=== PATIENT | male | born 1970 | race Hispanic/Latino ===

== ENCOUNTER 2019-12-11 11:34 | Emergency (ER) | payer OTHER ==
[~2019-12-11] VITALS: Ht 170.2 cm; Wt 77.1 kg
--- OUTSIDE RECORDS SUMMARY | 2019-12-11 11:37 | XMS REPORT | Summary of Care ---
Author Author [facility] Organization [facility] Address Unknown Phone Unavailable Encounter HQ Machelle(FIN) [id number] Date(s): 06/19/17 - 06/19/17 [facility] [address], [address] [place] [address]- [phone] Discharge Disposition: Home or Self Care Attending Physician: Mila Houston MD Vital Signs Most recent to 1 oldest [Reference Range]: Height 170.18 cm (06/19/17 8:30 AM) Temperature Oral 98.7 DegF [96.4-99.1 DegF] (06/19/17 8:30 AM) Blood Pressure 123/61 mmHg [90-140/60-90 mmHg] (06/19/17 8:30 AM) Respiratory Rate 14 BRMIN [14-20 BRMIN] (06/19/17 8:30 AM) Peripheral Pulse 61 bpm Rate [60-100 bpm] (06/19/17 8:30 AM) Weight 77.955 kg (06/19/17 8:30 AM) Body Mass Index 26.92 m2 (06/19/17 8:30 AM) Problem List Condition Effective Dates Status Health Status Informan t Abnormal EKG Active finding(Confirmed)1 Acid Active reflux(Confirmed) Anxiety(Confirmed) Active Anxiety Active disorder(Confirmed)2 Back pain(Confirmed) Active Benign essential Active HTN(Confirmed) Chest Active pain(Confirmed) Chronic diastolic 01/12/15 Active heart failure(Confirmed)3 B12 Active deficiency(Confirmed ) Low serum vitamin Active D(Confirmed) 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 See's Dr[address] Leslie Grant 2Data migrated from [employer] on 12/25/14. 3Data migrated from [employer] on 02/02/15. 4Data migrated from [employer] on 12/25/14. 5Data migrated from [employer] on 12/25/14. 6Data migrated from [employer] on 02/02/15. 7Data migrated from [employer] on 12/25/14. 8Data migrated from [employer] on 12/25/14. 9Data migrated from [employer] on 12/25/14. 10Data migrated from [employer] on 12/25/14. 11Data migrated from [employer] on 12/25/14. 12Data migrated from [employer] on 12/25/14. 13Data migrated from [employer] on 12/25/14. Allergies, Adverse Reactions, Alerts Substance Reaction Severity Status penicillins1, 2 Active 1Data migrated from [employer] on 02/25/15. Originally documented as PENICILLIN. rash on body 2Data migrated from [employer] on 02/24/15. Originally documented as PENICILLIN. Medications ergocalciferol 50,000 intl units oral capsule 50,000 IntlUnit = 1 cap, PO, Q-M and W, # 35 cap, 0 Refill(s), Pharmacy: [id number] Start Date: 06/19/17 Stop Date: 10/17/17 Status: Ordered furosemide 40 mg oral tablet 40 mg = 1 tab, PO, Daily, # 90 tab, 1 Refill(s), Pharmacy: [id number] Start Date: 06/19/17 Stop Date: 12/16/17 Status: Ordered losartan 100 mg oral tablet 100 mg = 1 tab, PO, Daily, X 90 day, # 90 tab, 1 Refill(s), Pharmacy: [id number] Start Date: 06/19/17 Stop Date: 12/16/17 Status: Ordered simvastatin 5 mg oral tablet 5 mg = 1 tab, PO, Bedtime, X 90 day, # 90 tab, 1 Refill(s), Pharmacy: [id number] Start Date: 06/19/17 Stop Date: 12/16/17 Status: Ordered Results No data available for this section Immunizations Given and Recorded Vaccine Date Status Refusal Reason influenza virus vaccine, inactivated 03/31/17 R ecorded influenza virus vaccine, inactivated 05/05/15 G iven influenza virus vaccine, inactivated1 04/24/13 Given pneumococcal 23-valent vaccine 05/05/15 Given diphtheria/pertussis, acel/tetanus adult 05/04/15 Given Hx influenza vaccine-unspecified2 04/24/13 Give n 1Result Comment: fluzone (>3 yrs.) [[id number]]. Migrated from OBS ; Data migrated from [employer] on 08/30/2015. 2Result Comment: done. Migrated from OBS ; Data migrated from [employer] on 08/30/2015. Procedures Procedure Date Related Diagnosis Body Site Procedure on elbow joint1 04/2015 Operation 04/13/11 Tricuspid valve operation 05/13/10 Injection into joint Open heart surgery 1Incision and drainage Social History Social History Type Response Alcohol Current, Type Beer. Freque ncy: 1-2 times per month. Smoking Status Never smoker; Type: Cigars; Exposure to Tobacco Smoke None; Cigarette Smoking Last 365 Days No; Reg Smoking C essation Counseling No Assessment and Plan No data available for this section
--- OUTSIDE RECORDS SUMMARY | 2019-12-11 11:37 | XMS REPORT | Summary of Care ---
Author Author [facility] Organization [facility] Address Unknown Phone Unavailable Encounter HQ Machelle(FIN) [id number] Date(s): 06/11/17 - 06/11/17 [facility] [address], [address] [place] [address]- [phone] Discharge Disposition: Home or Self Care Attending Physician: Mila Houston MD Vital Signs Most recent to 1 oldest [Reference Range]: Height 170.18 cm (06/11/17 9:59 AM) Temperature Oral 99.3 DegF [96.4-99.1 DegF] *HI* (06/11/17 9:59 AM) Blood Pressure 124/67 mmHg [90-140/60-90 mmHg] (06/11/17 9:59 AM) Respiratory Rate 14 BRMIN [14-20 BRMIN] (06/11/17 9:59 AM) Peripheral Pulse 60 bpm Rate [60-100 bpm] (06/11/17 9:59 AM) Weight 76.364 kg (06/11/17 9:59 AM) Body Mass Index 26.37 m2 (06/11/17 9:59 AM) Problem List Condition Effective Dates Status Health Status Informan t Abnormal EKG Active finding(Confirmed)1 Acid Active reflux(Confirmed) Anxiety(Confirmed) Active Anxiety Active disorder(Confirmed)2 Back pain(Confirmed) Active Benign essential Active HTN(Confirmed) Chest Active pain(Confirmed) Chronic diastolic 01/12/15 Active heart failure(Confirmed)3 Low serum vitamin Active D(Confirmed) 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 Originally documented as PENICILLIN. Medications citalopram 40 mg oral tablet 40 mg = 1 tab, PO, Daily, # 90 tab, 1 Refill(s), Pharmacy: [id number] Start Date: 06/11/17 Stop Date: 12/08/17 Status: Ordered furosemide 40 mg oral tablet 40 mg = 1 tab, PO, Daily, # 90 tab, 1 Refill(s), Pharmacy: [id number] Start Date: 06/11/17 Stop Date: 12/08/17 Status: Ordered losartan 100 mg oral tablet 100 mg = 1 tab, PO, Daily, X 90 day, # 90 tab, 1 Refill(s), [facility] Start Date: 06/11/17 Stop Date: 12/08/17 Status: Ordered minoxidil 2.5 mg oral tablet 2.5 mg = 1 tab, PO, BID, # 180 tab, 1 Refill(s), Pharmacy: [id number] Start Date: 06/11/17 Stop Date: 12/08/17 Status: Ordered Nitrostat 0.4 mg sublingual tablet 0.4 mg = 1 tab, SL, Q5Min, PRN Chest Pain, # 100 tab, 0 Refill(s), Pharmacy: [facility] Start Date: 06/11/17 Stop Date: 07/11/17 Status: Ordered simvastatin 5 mg oral tablet 5 mg = 1 tab, PO, Bedtime, X 90 day, # 90 tab, 1 Refill(s), [facility] Start Date: 06/11/17 Stop Date: 12/08/17 Status: Ordered Results No data available for this section Immunizations Given and Recorded Vaccine Date Status Refusal Reason influenza virus vaccine, inactivated 03/31/17 R ecorded influenza virus vaccine, inactivated 05/05/15 G iven influenza virus vaccine, inactivated1 04/24/13 Given pneumococcal 23-valent vaccine 05/05/15 Given diphtheria/pertussis, acel/tetanus adult 05/04/15 Given Hx influenza vaccine-unspecified2 04/24/13 Give n 1Result Comment: fluzone (>3 yrs.) [[id number]]. Migrated from OBS ; Data migrated from [employer] on 08/30/2015. 2Result Comment: done. Migrated from OBS ; Data migrated from [employer] on 08/30/2015. Procedures Procedure Date Related Diagnosis [...]
--- OUTSIDE RECORDS SUMMARY | 2019-12-11 11:37 | XMS REPORT | Summary of Care ---
Author Author [facility] Organization [facility] Address Unknown Phone Unavailable Encounter HQ Xavier_bebo(FIN) [id number] Date(s): 09/15/18 - 09/16/18 [facility] [address], [address] [place] [address]- [phone] Vital Signs No data available for this section Problem List Condition Effective Dates Status Health Status Informan t Abnormal EKG Active finding(Confirmed)1 Acid Active reflux(Confirmed) Anemia(Confirmed) Active Anxiety(Confirmed) Active Canker Active sore(Confirmed) Back pain(Confirmed) Active Benign essential Active HTN(Confirmed) Chronic diastolic 01/12/15 Active heart failure(Confirmed)2 B12 Active deficiency(Confirmed ) Low serum vitamin Active D(Confirmed) DM type 2 with Resolved diabetic peripheral neuropathy(Confirmed ) Tricuspid valve Active replaced(Confirmed) Heart disease3 09/21/13 Active Status post aortic Active coarctation repair(Confirmed) Hyperkalemia4 Active Impotence5 Active Injury of index Active finger(Confirmed) Insomnia6 Active Knee pain7 09/21/13 Active Hyperlipidemia, Active mixed(Confirmed) Annual physical Active exam(Confirmed) Prediabetes(Confirme Active d) Diabetes mellitus Active screening(Confirmed) Shoulder joint pain8 Active Spinal stenosis9 Active 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 See's [address] Leslie Grant 2Data migrated from [employer] on 02/02/15. 3Data migrated from [employer] on 12/25/14. 4Data migrated from [employer] on 12/25/14. 5Data migrated from [employer] on 12/25/14. 6Data migrated from [employer] on 12/25/14. 7Data migrated from [employer] on 12/25/14. 8Data migrated from [employer] on 12/25/14. 9Data migrated from [employer] on 12/25/14. Allergies, Adverse Reactions, Alerts Substance Reaction Severity Status penicillins1, 2 Active 1Data migrated from [employer] on 02/25/15. Originally documented as PENICILLIN. rash on body 2Data migrated from [employer] on 02/24/15. Originally documented as PENICILLIN. Medications amLODIPine-valsartan 10 mg-320 mg oral tablet 1 tab, PO, Daily, # 90 tab, 1 Refill(s), Pharmacy: [id number] Start Date: 09/15/18 Stop Date: 03/14/19 Status: Ordered Results No data available for this section Immunizations Given and Recorded Vaccine Date Status Refusal Reason influenza virus vaccine, inactivated1 06/12/18 Given influenza virus vaccine, inactivated 03/31/17 R ecorded influenza virus vaccine, inactivated 05/05/15 G iven influenza virus vaccine, inactivated2 04/24/13 Given pneumococcal 23-valent vaccine 05/05/15 Given diphtheria/pertussis, acel/tetanus adult 05/04/15 Given Hx influenza vaccine-unspecified3 04/24/13 Give n 1Result Comment: Patient tolerated well 2Result Comment: fluzone (>3 yrs.) [[id number]]. Migrated from OBS ; Data migrated from [employer] on 08/30/2015. 3Result Comment: done. Migrated from OBS ; Data migrated from [employer] on 08/30/2015. Procedures Procedure Date Related Diagnosis Body Site Status Procedure on elbow joint1 04/2015 Completed Operation 04/13/11 Completed Tricuspid valve operation 05/13/10 Completed Injection into joint Completed Open heart surgery Completed 1Incision and drainage Social History Social History Type Response Alcohol Current, Type Beer. Freque ncy: 1-2 times per month. Smoking Status Never smoker; Type: Cigars; Exposure to Tobacco Smoke None; Cigarette Smoking Last 365 Days No; Reg Smoking C essation Counseling No entered on: 09/17/18 Assessment and Plan No data available for this section
--- OUTSIDE RECORDS SUMMARY | 2019-12-11 11:37 | XMS REPORT | Summary of Care ---
Author Author [facility] Organization [facility] Address Unknown Phone Unavailable Encounter HQ Annier_bebo(FIN) [id number] Date(s): 06/18/17 - 06/18/17 [facility] [address], [address] [place] [address]- [phone] Attending Physician: Mila Houston MD Vital Signs No data available for this [...] 09/21/13 Resolved Hypertensive Active disorder(Confirmed)8 Impotence9 Active [id number] Active Knee pain11 09/21/13 Active Hyperlipidemia, Active mixed(Confirmed) Annual physical Active exam(Confirmed) Thyroid disorder Active screen(Confirmed) Shoulder joint Active pain12 Spinal kmbvauxc11 Active 1Patient has history of Trisuspid valve [...] on 02/24/15. Originally documented as PENICILLIN. Medications No data available for this section Results No data available for this section Immunizations Given and Recorded Vaccine Date Status Refusal Reason influenza virus vaccine, inactivated 03/31/17 R ecorded influenza virus vaccine, inactivated 05/05/15 G iven influenza virus vaccine, inactivated1 04/24/13 Given pneumococcal 23-valent vaccine 05/05/15 Given diphtheria/pertussis, acel/tetanus adult 05/04/15 Given Hx influenza vaccine-unspecified2 04/24/13 Give n 1Result Comment: fluzone (>3 yrs.) [[id number]]. Migrated from OBS ; Data migrated from [employer] on 08/30/2015. 2Result Comment: done. Migrated from OBS ; Data migrated from [employer] on 08/30/2015. Procedures Procedure Date Related Diagnosis [...]
--- OUTSIDE RECORDS SUMMARY | 2019-12-11 11:37 | XMS REPORT | Continuity of Care Document ---
Author Author Nelida [employer] Organization [employer] Address Unknown Phone Unavailable Care Team Providers Care [employer] Name Role Phone [employer] Unavailable Un available Problems Problem Status Onset Date Classification Date Reported Comments Source ARM PAIN Active 05/04/2015 [facility] LEFT ELBOW CELLULITIS Active 05/04/2015 [facility] Chronic diastolic heart failure (disorder) Active 01/12/2015 Problem 11/20/2019 Data migrated from [employer] on 02/02/15. Medical [facility] Discharge Diagnosis: Effusion of right knee 01/30/2014 02/01/2014 [facility] LEG PAIN Active 01/30/2014 [facility] UNK Active 0 01/19/2014 [facility] Heart disease (disorder) Active 09/21/2013 Problem 11/20/2019 Data migrated from [facility] on 12/25. [facility] Hyperlipidemia (disorder) Reso lved 09/21/2013 Problem 07/08/2017 Data migrated from [facility] on . Data migrated from [facility] on 12/25/14. [facility] Knee pain (finding) Active 09/21/2013 Problem 11/20/2019 Data migrated from [facility] on 12/25. [facility] NOSE BLEED Active 12/03/2011 [facility] Abnormal ECG (finding) Active Problem 11/20/2019 Patient has history of Trisuspid valve r eplacement in 2009. See's Dr[address] Leslie Grant [facility] [place] Gastroesophageal reflux disease (disorder) Active Problem 11/20/2019 [facility] [place] Anxiety (finding) Active Problem 11/20/2019 [facility] [place] Anxiety disorder (disorder) Ac tive Problem 05/2017 Data migrated from [facility] on 12/25. Medical [facility] Backache (finding) Active Problem 11/20/2019 [facility] [place] Benign essential hypertension (disorder) Active Problem 11/20/2019 [facility] Chest pain (finding) Active Problem 11/17/2017 [facility] Cobalamin deficiency (disorder) Active Problem [facility] Group Decreased vitamin D (finding) Active Problem [facility] Diabetic peripheral neuropathy associate d with type II diabetes mellitus (disorder) Resolved Problem 11/20/2019 [facility] Hyperkalemia (disorder) Active Problem 11/20/2019 Data migrated from [employer] on 12/25/14. Medical Group,[facility] Hypertensive disorder, systemic arterial (disorder) Active Problem 11/17/2017 Data migrated from [employer] on 12/25/14. Medical Group,[facility] [place] Impotence (disorder) Active Problem 11/20/2019 Data migrated from [employer] on 12/25/14. [facility] ([facility]order) Active Problem 11/20/2019 Data migrated from [employer] on 12/25/14. Medical Group,[facility] Mixed hyperlipidemia (disorder) Active Problem Medical Group Patient encounter status (finding) Active Problem Medical Group Screening status (finding) Act keara Problem Medical Group Shoulder joint pain (finding) Active Problem Data migrated from [employer] on 12/25. [facility] Spinal stenosis (disorder) Act keara Problem Data migrated from [employer] on 12/25. Medical Group,[facility] Anemia (disorder) Active Problem 11/20/2019 [facility] Bleeding from nose (finding) A ctive Problem Medical Group Cramp in lower limb (finding) Active Problem [facility] Group Prediabetes (finding) Active Problem 11/20/2019 [facility] Sore throat symptom (finding) Active Problem 05/2017 [facility] Viral upper respiratory tract infection (disorder) Active Problem 07/08/2017 [facility] Aphthous ulcer of mouth (disorder) Active Problem Medical Group History of - heart valve recipient (cont ext-dependent category) Active Prob lara 11/20/2019 [facility] History of repair of coarctation of aorta (situation) Active Problem 11/20/2019 Medical [facility] Injury of finger (disorder) Ac tive Problem Medical [facility] Moderate major depression (disorder) Active Problem Medical Group SHULDER PAIN Active [facility] RT KNEE Active [facility] [place] CELLULITIS, UNSPECIFIED Active [facility] Medications Medication Details Route Status Patient Instructions Ordering Provider Order Date Source olmesartan 40 mg oral tablet 4 0 mg = 1 tab, PO, Daily, # 90 tab, 1 Refill(s), Pharmacy: [facility] Active 11/18/2019 [facility] valsartan 320 mg oral tablet 3 20 mg = 1 tab, PO, Daily, # 90 tab, 1 Refill(s), Pharmacy: [facility] Active 07/20/2019 [facility] simvastatin 5 mg oral tablet 1 tab, PO, Bedtime, # 90 tab, 1 Refill(s), Pharmacy: [facility] Active 07/20/2019 [facility] carvedilol 12.5 mg oral tablet = 1 tab, PO, BID, # 180 tab, 1 Refill(s), Pharmacy: [id number] Active 07/20/2019 [facility] amLODIPine 10 mg oral tablet 1 0 mg = 1 tab, PO, Daily, # 90 tab, 1 Refill(s), Pharmacy: [facility] Active 07/20/2019 [facility] citalopram 20 mg oral tablet 2 0 mg = 1 tab, PO, Daily, # 90 tab, 1 Refill(s), Pharmacy: [facility] Active 07/20/2019 [facility] amLODIPine 10 mg oral tablet 1 0 mg = 1 tab, PO, Daily, # 30 tab, 0 Refill(s), Pharmacy: [facility]244 Active 07/13/2019 [facility] valsartan 320 mg oral tablet 3 20 mg = 1 tab, PO, Daily, # 30 tab, 0 Refill(s), Pharmacy: [facility] Active 07/13/2019 [facility] simvastatin 5 mg oral tablet 1 tab, PO, Bedtime, # 90 tab, 1 Refill(s), Pharmacy: [facility]244 Active 11/10/2018 [facility] Furosemide 20 MG Oral Tablet 2 0 mg = 1 tab, PO, Every Other Day, # 45 tab, 1 Refill(s), Pharmacy: [facility] Active 11/10/2018 [facility] citalopram 40 mg oral tablet S ee Instructions, TAKE ONE TABLET BY MOUTH ONCE DAILY FOR 90 DAYS, # 90 tab, 1 Refill(s), Pharmacy: [facility] Active 11/10/2018 [facility] Amlodipine 10 MG / valsartan 320 MG Oral Tablet 1 tab, PO, Daily, # 90 tab, 1 Refill(s), Pharmacy: [facility]244 Active 11/10/2018 [facility] carvedilol 12.5 mg oral tablet 12.5 mg = 1 tab, PO, BID, # 180 tab, 1 Refill(s), Pharmacy: [facility] Active 11/10/2018 [facility] Amlodipine 10 MG / valsartan 320 MG Oral Tablet 1 tab, PO, Daily, # 90 tab, 1 Refill(s), Pharmacy: [facility] Active 09/15/2018 [facility] Amlodipine 10 MG / Olmesartan medoxomil 40 MG Oral Tablet 1 tab, PO, Daily, # 90 tab, 1 Refill(s), Pharmacy: [facility] Active 09/11/2018 [facility] Salicylic Acid 170 MG/ML Topical Solution See Instructions, apply only on affected area daily for 30days, # 1 btl, 0 Refill(s), Pharmacy: [facility] No Longer Active 06/25/2018 [facility] Furosemide 20 MG Oral Tablet 2 0 mg = 1 tab, PO, Every Other Day, # 45 tab, 1 Refill(s), Pharmacy: [facility]244 No Longer Active 06/25/2018 [facility] Furosemide 20 MG Oral Tablet 2 0 mg = 1 tab, PO, Daily, # 90 tab, 1 Refill(s), Pharmacy: [facility]244 No Longer Active 06/12/2018 [facility] amLODIPine 5 mg oral tablet Se e Instructions, TAKE 1 TABLET BY MOUTH ONCE DAILY, # 90 tab, 1 Refill(s), Pharmacy: [facility]244 No Longer Active 05/26/2018 [facility] Furosemide 40 MG Oral Tablet S ee Instructions, # 90 tab, Refill(s) 1, TAKE ONE TABLET BY MOUTH ONCE DAILY, Pharmacy: [facility] Active 01/24/2018 Medical [facility] Hydrochlorothiazide 25 MG Oral Tablet 25 mg = 1 tab, PO, Daily, # 90 tab, 1 Refill(s), Pharmacy: [facility] No Longer Active 01/21/2018 [facility] simvastatin 5 mg oral tablet 5 mg = 1 tab, PO, Bedtime, # 90 tab, 1 Refill(s), Pharmacy: [facility] Active 01/09/2018 [facility] amLODIPine 5 mg oral tablet 5 mg = 1 tab, PO, Daily, # 90 tab, 1 Refill(s), Pharmacy: [facility] Active 01/08/2018 [facility] dimethicone 0.01 MG/MG Topical Ointment 1 appl, TOP, QID, # 15 gm, 0 Refill(s), Pharmacy: [facility] Active 12/03/2017 [facility] Fluocinonide 0.0005 MG/MG Topical Gel 1 appl, TOP, QID, X 7 day, # 15 gm, 0 Refill(s), Pharmacy: [facility] Active 12/03/2017 [facility] omeprazole 40 mg oral delayed release capsule 40 mg = 1 cap, PO, Daily, # 60 cap, 0 Refill(s), Pharmacy: [facility] Active 07/05/2017 [facility] clarithromycin 500 mg oral tablet 500 mg = 1 tab, PO, Q12H, X 7 day, # 14 tab, 0 Refill(s), Pharmacy: [facility] Active 07/05/2017 [facility] ibuprofen 800 mg oral tablet 8 00 mg = 1 tab, PO, Q8H, PRN Pain, Take with food, X 10 day, # 30 tab, 0 Refill(s), Pharmacy: [facility] Active 07/05/2017 [facility] losartan 100 mg oral tablet 10 0 mg = 1 tab, PO, Daily, X 90 day, # 90 tab, 1 Refill(s), Pharmacy: [facility] Active 06/19/2017 [facility] simvastatin 5 mg oral tablet 5 mg = 1 tab, PO, Bedtime, X 90 day, # 90 tab, 1 Refill(s), Pharmacy: [facility] Active 06/19/2017 [facility] Ergocalciferol 15704 UNT Oral Capsule 50,000 IntlUnit = 1 cap, PO, Q-M and W, # 35 cap, 0 Refill(s), Pharmacy: [facility] Active 06/19/2017 [facility] Furosemide 40 MG Oral Tablet 4 0 mg = 1 tab, PO, Daily, # 90 tab, 1 Refill(s), Pharmacy: [facility] Active 06/19/2017 [facility] simvastatin 5 mg oral tablet 5 mg = 1 tab, PO, Bedtime, X 90 day, # 90 tab, 1 Refill(s), Pharmacy: [place] [id number] Active 06/11/2017 [facility] minoxidil 2.5 mg oral tablet 2 .5 mg = 1 tab, PO, BID, # 180 tab, 1 Refill(s), Pharmacy: [place] [id number] Active 06/11/2017 [facility] losartan 100 mg oral tablet 10 0 mg = 1 tab, PO, Daily, X 90 day, # 90 tab, 1 Refill(s), Pharmacy: [place] [id number] Active 06/11/2017 [facility] Furosemide 40 MG Oral Tablet 4 0 mg = 1 tab, PO, Daily, # 90 tab, 1 Refill(s), Pharmacy: [facility] Active 06/11/2017 [facility] citalopram 40 mg oral tablet 4 0 mg = 1 tab, PO, Daily, # 90 tab, 1 Refill(s), Pharmacy: [facility] Active 06/11/2017 [facility] Nitroglycerin 0.4 MG Sublingual Tablet [Nitrostat] 0.4 mg = 1 tab, SL, Q5Min, PRN Chest Pain, # 100 tab, 0 Refill(s), Pharmacy: [facility] Active 06/11/2017 [facility] Acetaminophen 325 MG / Hydrocodone Isamar trate 5 MG Oral Tablet [Bridger 5/325] 1 tab, PO, Q6H, PRN Pain Score 4-6, # 30 tab, 0 Refill(s) Active 05/09/2015 [facility] Clonidine Notes: (Same As: Cat apres) Inactive 05/09/2015 [facility] Clindamycin 150 MG/ML Injectable Solution 600 mg, 50 mL, Route: IVPB, Drug form: INJ, Q8H, Dosing Weight 82.002, kg, Start date: 05/07/15 16:00:00, Duration: 1 doses or times, Stop date: 05/07/15 16:00:00 Inactive 05/07/2015 [facility] Ketorolac 4 days. No Longer Active 05/07/2015 [facility] Naloxone Notes: Same as Narcan Inactive 05/07/2015 [facility] Flumazenil Notes: (Same as: Ro mazicon) Inactive 05/07/2015 [facility] Ondansetron Notes: (Same as: Cady escalante) MEDICATION WASTE Product Size: 4 mg Product Wasted: ___ mg Inactive 05/07/2015 [facility] Oxycodone Notes: (Same as: Griselda icodone) Inactive 05/07/2015 [facility] Fentanyl Notes: (Same as: Subl imaze) Preservative free. Inactive 05/07/2015 [facility] Hydromorphone 0.5 mg, 0.5 mL, Route: IVP, Drug form: INJ, Q5Min, Dosing Weight 82.002, kg, PRN Pain Score 7-10, Start date: 05/07/15 9:06:00, Duration: 4 doses or times, Stop date: Limited # of times Inactive 05/07/2015 [facility] Meperidine Notes: (Same As: De merol) Inactive 05/07/2015 [facility] Hydralazine Notes: (Same as: A presoline) Push over 5 minutes Inactive 05/07/2015 [facility] Enoxaparin Notes: (Same as: Lo venox) No Longer Active 05/07/2015 [facility] pantoprazole Notes: Tablet jade uld not be chewed or crushed. (Same as: Protonix) N o Longer Active 05/07/2015 [facility] docusate sodium 100 mg oral capsule Notes: (Same as: Colace) (Do Not Crush) No Longer Active 05/07/2015 [facility] Acetaminophen 325 MG / Hydrocodone Isamar trate 10 MG Oral Tablet Notes: Do not exceed 4gm/day of acetamin ophen. (Same as: Bridger 325/10) No Longer Active 05/07/2015 [facility] Morphine Notes: (Same as:MORPh ine Sulfate) No Longer Active 05/07/2015 [facility] zolpidem Notes: (Same As: Ambi en) No Longer Active 05/07/2015 [facility] Promethazine Notes: Do not giv e IV push. (Same as: Phenergan) No Longer Active 05/07/2015 [facility] Dulcolax Laxative Notes: (Same As: Dulcolax, Correctol) (Do Not Crush) "Do Not Crush" No Longer Active 05/07/2015 [facility] Al hydroxide/Mg hydroxide/simethicone 20 0 mg-200 mg-20 mg/5 mL oral suspension Notes: (aluminum hydroxide-magnesium hyd -simethicone [phone]/5ml 30 ml ud RAMIRO) No Longer Active 05/07/2015 [facility] Diphenhydramine 12.5 mg, 0.5 t ab, Route: PO, Drug form: TAB, Q6H, Dosing Weight 82.002, kg, PRN Itching, Start date: 05/07/15 8:38:00, Duration: 30 day, Stop date: 06/06/15 8:37:00 No Longer Active 05/07/2015 [facility] Acetaminophen Notes: Do not ex ceed 4 gm/day. (Same as: Tylenol) No Longer Active 05/07/2015 [facility] Lactated Ringers IV 1,000 mL 1 ,000 mL, Rate: 75 ml/hr, Infuse over: 13.3 hr, Route: IV, Dosing Weight 82.002 kg, Total Volume: 1,000, Start date: 05/07/15 8:38:00, Duration: 30 day, Stop date: 06/06/15 8:37:00 No Longer Active 05/07/2015 [facility] Zanaflex Notes: (Same As: Nicola flex) No Longer Active 05/06/2015 [facility] Acetaminophen 300 MG / Codeine Phosphate 30 MG Oral Tablet [Tylenol with Codeine #3] Notes: Do not exceed 4gm/day of acetamin ophen. (Same as: Tylenol with Codeine # 3) No Longer Active 05/06/2015 [facility] Ibuprofen Notes: (Same as: Mot rin) "Do Not Crush" Take with food. No Longer Active 05/06/2015 [facility] Vancomycin 2001 mg: infuse ov er 2.5 hours No Longer Active 05/05/2015 [facility] Furosemide 40 MG Oral Tablet N otes: (Same as: Lasix) May cause GI upset. Give with food or milk. No Longer Active 05/05/2015 [facility] Losartan Notes: (Same as: Julio C dennis) No Longer Active 05/05/2015 [facility] Minoxidil Notes: (Same as:Mariam olivarez) No Longer Active 05/05/2015 [facility] Citalopram Notes: (Same As: Ce Dar) No Longer Active 05/05/2015 [facility] influenza virus vaccine, inactivated Notes: (Same as: Fluzone Quadrivalent) For 3 years of age and older (0.5 mL IM) Shake well before use Inactive 05/05/2015 [facility] pneumococcal capsular polysaccharide typ e 1 vaccine / pneumococcal capsular polysaccharide type 10A vaccine / pneumococcal capsular polysaccharide type 11A vaccine / pneumococcal capsular polysaccharide type 12F vaccine / pneumococcal capsular polysacchar Notes: (Same as: Pneumovax 23) Refrigerate Inactive 05/05/2015 [facility] Vancomycin Notes: TIME CRITICA L MEDICATION Inactive 05/05/2015 [facility] Losartan Notes: (Same as: Julio C dennis) No Longer Active 05/05/2015 [facility] Citalopram Notes: (Same As: Ce Dar) No Longer Active 05/05/2015 [facility] Minoxidil Notes: (Same as:Mariam olivarez) No Longer Active 05/05/2015 [facility] Aspirin Notes: Do not crush or chew. (Same As: Ecotrin) No Longer Active 05/05/2015 [facility] Alprazolam Notes: With food or milk (Same as: Xanax) No Longer Active 05/05/2015 [facility] Tylenol Notes: Max acetaminoph en = 4000mg/day (4 gm/day). (Same as: Tylenol) N o Longer Active 05/05/2015 [facility] Morphine Notes: (Same as:MORPh ine Sulfate) No Longer Active 05/05/2015 [facility] Saline Flush 0.9% Notes: (Same as: BD Posiflush) No Longer Active 05/04/2015 [facility] Tylenol Notes: Do not exceed 4 gm/day. (Same as: Tylenol) Inactive 05/04/2015 [facility] Vancomycin 1 gm, Route: IVPB, Drug form: INJ, Q24H, Dosing Weight 79.545, kg, Priority: STAT, Start date: 05/04/15 16:28:00, Duration: 30 day, Stop date: 06/02/15 16:28:00 Inactive 05/04/2015 [facility] Sodium Chloride 0.154 MEQ/ML Injectable Solution 1,000 mL, 1000 ml/hr, Infuse Over: 1 hr, Route: IV, 1,000, Drug form: INJ, ONCE, Priority: STAT, Dosing Weight 79.545 kg, Start date: 05/04/15 15:57:00, Duration: 1 doses or times, Stop date: 05/04/15 15:57:00 Inactive 05/04/2015 [facility] Vancomycin 1 gm, Route: IVPB, Drug form: INJ, ONCE, Dosing Weight 79.545, kg, Priority: STAT, Start date: 05/04/15 13:26:00, Stop date: 05/04/15 13:26:00 Inactive 05/04/2015 [facility] Flexeril 10 mg, Route: PO, ONC E, Dosing Weight 79.545, kg, Priority: STAT, Start date: 05/04/15 13:26:00, Stop date: 05/04/15 13:26:00 Inactive 05/04/2015 [facility] ropivacaine Notes: Final hubert ntration: Ropivacaine 0.2% 400 ml No Longer Active 01/22/2014 [facility] Zofran Notes: (Same as: Zofran) No Longer Active 01/22/2014 [facility] Acetaminophen 325 MG / Oxycodone Hydroch loride 5 MG Oral Tablet [Percocet 5/325] Notes: Do not exceed 4gm/day of acetamin ophen. (Same as: Percocet-5/325) No Longer Active 01/22/2014 [facility] Morphine Notes: (Same as:MORPh ine Sulfate) No Longer Active 01/22/2014 [facility] Naloxone Notes: Same as Narcan No Longer Active 01/22/2014 [facility] Promethazine Notes: Do not giv e IV push. (Same as: Phenergan) No Longer Active 01/22/2014 [facility] Ondansetron Notes: (Same as: Z ofran) No Longer Active 01/22/2014 [facility] Fentanyl Notes: (Same as: Subl imaze) Preservative free. No Longer Active 01/22/2014 [facility] Morphine Notes: (Same as:MORPh ine Sulfate) No Longer Active 01/22/2014 [facility] Oxycodone Notes: (Same as: Oxy IR) No Longer Active 01/22/2014 [facility] Hydromorphone 0.5 mg, 0.5 mL, Route: IVP, Drug form: INJ, Q5Min, Dosing Weight 77.273, kg, PRN Pain Score 7-10, Start date: 01/22/14 17:04:00, Duration: 4 doses or times, Stop date: Limited # of times No Longer Active 01/22/2014 [facility] Diphenhydramine Notes: (Same a s: Benadryl) No Longer Active 01/22/2014 [facility] Oxycodone Hydrochloride 1 MG/ML Oral Solution Notes: (Same as: OxyIR) No Longer Active 01/22/2014 [facility] Ketorolac 4 days Inactive 01/22/2014 [facility] Meperidine Notes: (Same As: De merol) No Longer Active 01/22/2014 [facility] Flumazenil Notes: (Same as: Ro mazicon) No Longer Active 01/22/2014 [facility] Acetaminophen Notes: Infuse ov er 15 minutes Do not exceed 4gm/day of acetaminophen No Longer Active 01/22/2014 [facility] Calcium Chloride 0.0014 MEQ/ML / Potassi um Chloride 0.004 MEQ/ML / Sodium Chloride 0.103 MEQ/ML / Sodium Lactate 0.028 MEQ/ML Injectable Solution 1,000 mL, Rate: 125 ml/hr, Infuse over: 8 hr, Route: IV, Dosing Weight 77.273 kg, Total Volume: 1,000, Start date: 01/22/14 17:04:00, Duration: 30 day, Stop date: 02/21/14 17:03:00 No Longer Active 01/22/2014 [facility] Cefazolin 2 gm, Route: IVPB, O NCE, Dosing Weight 77.273, kg, Start date: 01/22/14 14:33:00, Duration: 1 doses or times, Stop date: 01/22/14 14:33:00 Inactive 01/22/2014 [facility] Calcium Chloride 0.0014 MEQ/ML / Potassi um Chloride 0.004 MEQ/ML / Sodium Chloride 0.103 MEQ/ML / Sodium Lactate 0.028 MEQ/ML Injectable Solution 1,000 mL, Rate: 25 ml/hr, Infuse over: 4 0 hr, Route: IV, Dosing Weight 77.273 kg, Total Volume: 1,000, Start date: 01/22/14 12:38:00, Duration: 30 day, Stop date: 02/21/14 12:37:00 Inactive 01/22/2014 [facility] losartan 50 mg oral tablet 50 mg = 1 tab, PO, Daily, # 30 tab, 0 Refill(s) Active 01/20/2014 [facility] Aspirin Low Dose 81 mg oral tablet = 1 tab, PO, Daily, 0 Refill(s) Active 01/20/2014 [facility] Furosemide 40 MG Oral Tablet 4 0 mg = 1 tab, PO, Daily, # 30 tab, 0 Refill(s) Active 01/20/2014 [facility] minoxidil 2.5 mg oral tablet 2 .5 mg = 1 tab, PO, BID, # 120 tab, 0 Refill(s) Active 01/20/2014 [facility] phenylephrine nasal 0.5% solution 2 spray, Route: NASAL, ONCE, Drug form: DROP, Start date: 12/04/11 2:21:00, Stop date: 12/04/11 2:21:00 NASAL No Longer Active [facility] 12/03 [facility] clonidine 0.1 mg oral tablet 0 .3 mg, 3 tab, Route: PO, Drug form: TAB, ONCE, Start date: 12/04/11 2:19:00, Stop date: 12/04/11 2:19:00 PO No Longer Active [facility] 12/03 [facility] Afrin 0.025% nasal solution Ro suzanna: NASAL, ONCE, Start date: 12/04/11 2:18:00, Stop date: 12/04/11 2:18:00 NASAL No Longer Active [facility] 12/04/2011 [facility] Allergies, Adverse Reactions, Alerts Substance Category Reaction Severity Reaction type Status Date Reported Comments Source penicillins<sup>1, 2</sup> Ass ertion Drug aller gy Active 09/11/2012 Data migrated from [employer] on 02/25/15. Originally documented as PENICILLIN. rash on body Data migrated from [employer] on 02/24/15. Originally documented as PENICILLIN. Medical Group penicillins Assertion Drug allergy Active [facility] Immunizations Immunization Date Given Site Status Last Updated Comments Source influenza virus vaccine, inactivated 06/02/2019 completed D imas [facility] influenza virus vaccine, inactivated<sup>1</sup> 06/12/2018 Left Deltoid completed Vera Result Comment: Patient tolerated well [facility] influenza virus vaccine, inactivated 03/31/2017 completed Recavarren Espitia [facility] pneumococcal 23-valent vaccine 05/05/2015 Left deltoid completed [facility] influenza virus vaccine, inactivated 05/05/2015 Right deltoid completed [facility] diphtheria/pertussis, acel/tetanus adult 05/04/2015 Right deltoid completed [facility] Hx influenza vaccine-unspecified<sup>2</sup> 04/24/2013 completed [facility] Result Comment: done. Migra katie from OBS ; Data migrated from [employer] on 08/30/2015. [facility] Hx influenza vaccine-unspecified<sup>3</sup> 04/24/2013 completed [facility] Result Comment: done. Migra katie from OBS ; Data migrated from [employer] on 08/30/2015. [facility] influenza virus vaccine, inactivated<sup>1</sup> 04/24/2013 Right Deltoid completed GE Result Comment: fluzone (>3 yrs.) [[id number]]. Migrated from OBS ; Data migrated from [employer] on 08/30/2015. [facility] influenza virus vaccine, inactivated<sup>2</sup> 04/24/2013 Right Deltoid completed GE Result Comment: fluzone (>3 yrs.) [[id number]]. Migrated from OBS ; Data migrated from [employer] on 08/30/2015. [facility] Results Order Name Results Value Reference Range Date Interpretation Comments Source ELECTROLYTES Chloride Lvl 100 95 - 109 05/09/2015 [facility] ELECTROLYTES Potassium Lvl 4.4 3.5 - 5.1 05/09/2015 [facility] ELECTROLYTES Sodium Lvl 137 135 - 145 05/09/2015 [facility] ELECTROLYTES eGFR 81 05/09/2015 Result Comment: The eGFR is calculated using the CKD-EPI formula. In most young, healthy individuals the eGFR will be >90 mL/min/1.73m2. The eGFR declines with age. An eGFR of 60-89 may be normal in some populations, particularly the elderly, for whom the CKD-EPI formula has not been extensively validated. Use of the eGFR is not recommended in the following populations:

Individuals with unstable creatinine concentrations, including patients and those with serious co-morbid conditions.

Patients with extremes in muscle mass or diet.

The data above are obtained from the National Kidney Disease Education Program (NKDEP) which additionally recommends that when the eGFR is used in patients with extremes of body mass index for purposes of drug dosing, the eGFR should be multiplied by the estimated BMI. [facility] ELECTROLYTES Calcium Lvl 9.0 8.5 - 10.5 05/09/2015 [facility] ELECTROLYTES BUN 16 7 - 22 05/09/2015 [facility] ELECTROLYTES CO2 31 24 - 32 05/09/2015 [facility] ELECTROLYTES Creatinine Lvl 1.1 0.5 - 1.4 05/09/2015 [facility] ELECTROLYTES Glucose Lvl 94 70 - 99 05/09/2015 [facility] ELECTROLYTES AGAP 10.4 10.0 - 20.0 05/09/2015 [facility] HEMATOLOGY Eosinophils # 0.2 0.0 - 0.5 05/09/2015 [facility] HEMATOLOGY Segs-Bands # 6.4 1.5 - 8.1 05/09/2015 [facility] HEMATOLOGY Basophils 0.5 0.0 - 1.0 05/09/2015 [facility] HEMATOLOGY Lymphocytes # 1.4 1.0 - 5.5 05/09/2015 [facility] HEMATOLOGY Monocytes # 0.7 0.0 - 0.8 05/09/2015 [facility] HEMATOLOGY Segs 73.0 45.0 - 75.0 05/09/2015 [facility] HEMATOLOGY Lymphocytes 16.0 20.0 - 40.0 05/09/2015 [facility] HEMATOLOGY Monocytes 7.7 2.0 - 12.0 05/09/2015 [facility] HEMATOLOGY Eosinophils 2.8 0.0 - 4.0 05/09/2015 [facility] HEMATOLOGY RDW 13.4 11.5 - 14.5 05/09/2015 [facility] HEMATOLOGY Platelet 277 133 - 450 05/09/2015 [facility] HEMATOLOGY Hct 41.1 42.0 - 54.0 05/09/2015 [facility] HEMATOLOGY MPV 8.8 7.4 - 10.4 05/09/2015 [facility] HEMATOLOGY MCV 85.2 80.0 - 94.0 05/09/2015 [facility] MCH 27.9 27.0 - 31.0 05/09/2015 [facility] MCHC 32.7 32.0 - 36.0 05/09/2015 [facility] HEMATOLOGY WBC 8.7 3.7 - 10.4 05/09/2015 [facility] RBC 4.82 4.70 - 6.10 05/09/2015 [facility] Hgb 13.5 14.0 - 18.0 05/09/2015 [facility] CHEM PANEL eGFR 91 05/08/2015 Result Comment: The eGFR is calculated using the CKD-EPI formula. In most young, healthy individuals the eGFR will be >90 mL/min/1.73m2. The eGFR declines with age. An eGFR of 60-89 may be normal in some populations, particularly the elderly, for whom the CKD-EPI formula has not been extensively validated. Use of the eGFR is not recommended in the following populations:

Individuals with unstable creatinine concentrations, including patients and those with serious co-morbid conditions.

Patients with extremes in muscle mass or diet.

The data above are obtained from the National Kidney Disease Education Program (NKDEP) which additionally recommends that when the eGFR is used in patients with extremes of body mass index for purposes of drug dosing, the eGFR should be multiplied by the estimated BMI. [facility] CHEM PANEL BUN 18 7 - 22 05/08/2015 [facility] CHEM PANEL Glucose Lvl 101 70 - 99 05/08/2015 [facility] CHEM PANEL CO2 29 24 - 32 05/08/2015 [facility] CHEM PANEL Creatinine Lvl 1.0 0.5 - 1.4 05/08/2015 [facility] CHEM PANEL Calcium Lvl 8.4 8.5 - 10.5 05/08/2015 [facility] CHEM PANEL Chloride Lvl 104 95 - 109 05/08/2015 [facility] CHEM PANEL Potassium Lvl 4.1 3.5 - 5.1 05/08/2015 [facility] CHEM PANEL Sodium Lvl 139 135 - 145 05/08/2015 [facility] CHEM PANEL AGAP 10.1 10.0 - 20.0 05/08/2015 [facility] HEMATOLOGY Basophils 0.7 0.0 - 1.0 05/08/2015 [facility] HEMATOLOGY Lymphocytes # 1.6 1.0 - 5.5 05/08/2015 [facility] Segs-Bands # 3.3 1.5 - 8.1 05/08/2015 [facility] HEMATOLOGY Monocytes 11.5 2.0 - 12.0 05/08/2015 [facility] HEMATOLOGY Eosinophils # 0.3 0.0 - 0.5 05/08/2015 [facility] HEMATOLOGY Monocytes # 0.7 0.0 - 0.8 05/08/2015 [facility] HEMATOLOGY Eosinophils 5.5 0.0 - 4.0 05/08/2015 [facility] Lymphocytes 26.5 20.0 - 40.0 05/08/2015 [facility] Segs 55.8 45.0 - 75.0 05/08/2015 [facility] MPV 8.7 7.4 - 10.4 05/08/2015 [facility] Platelet 211 133 - 450 05/08/2015 [facility] Hgb 12.9 14.0 - 18.0 05/08/2015 [facility] Hct 39.3 42.0 - 54.0 05/08/2015 [facility] RDW 13.6 11.5 - 14.5 05/08/2015 [facility] MCHC 32.9 32.0 - 36.0 05/08/2015 [facility] RBC 4.59 4.70 - 6.10 05/08/2015 [facility] MCH 28.2 27.0 - 31.0 05/08/2015 [facility] MCV 85.7 80.0 - 94.0 05/08/2015 [facility] WBC 6.0 3.7 - 10.4 05/08/2015 [facility] BLOOD BANK RESULTS ABO/Rh A POS 05/07/2015 [facility] BLOOD BANK RESULTS Antibody Scrn Negative (05/07/15 10:24 AM) 05/07/2015 [facility] CHEM PANEL eGFR 81 05/07/2015 Result Comment: The eGFR is calculated using the CKD-EPI formula. In most young, healthy individuals the eGFR will be >90 mL/min/1.73m2. The eGFR declines with age. An eGFR of 60-89 may be normal in some populations, particularly the elderly, for whom the CKD-EPI formula has not been extensively validated. Use of the eGFR is not recommended in the following populations:

Individuals with unstable creatinine concentrations, including patients and those with serious co-morbid conditions.

Patients with extremes in muscle mass or diet.

The data above are obtained from the National Kidney Disease Education Program (NKDEP) which additionally recommends that when the eGFR is used in patients with extremes of body mass index for purposes of drug dosing, the eGFR should be multiplied by the estimated BMI. [facility] CHEM PANEL Creatinine Lvl 1.1 0.5 - 1.4 05/07/2015 [facility] HEMATOLOGY Platelet 224 133 - 450 05/07/2015 [facility] HEMATOLOGY PTT 34.1 22.9 - 35.8 05/07/2015 [facility] TOXICOLOGY Vanco Tr 10.2 05/07/2015 [facility] TOXICOLOGY Vanco Tr TND 0730 05/07/2015 [facility] ELECTROLYTES Chloride Lvl 102 95 - 109 05/06/2015 [facility] ELECTROLYTES Potassium Lvl 3.7 3.5 - 5.1 05/06/2015 [facility] ELECTROLYTES Sodium Lvl 136 135 - 145 05/06/2015 [facility] ELECTROLYTES CO2 28 24 - 32 05/06/2015 [facility] ELECTROLYTES Calcium Lvl 8.5 8.5 - 10.5 05/06/2015 [facility] ELECTROLYTES BUN 15 7 - 22 05/06/2015 [facility] ELECTROLYTES Glucose Lvl 97 70 - 99 05/06/2015 [facility] ELECTROLYTES AGAP 9.7 10.0 - 20.0 05/06/2015 [facility] HEMATOLOGY MPV 9.1 7.4 - 10.4 05/06/2015 [facility] HEMATOLOGY Hct 40.7 42.0 - 54.0 05/06/2015 [facility] HEMATOLOGY WBC 10.2 3.7 - 10.4 05/06/2015 [facility] HEMATOLOGY Hgb 13.3 14.0 - 18.0 05/06/2015 [facility] HEMATOLOGY RBC 4.76 4.70 - 6.10 05/06/2015 [facility] HEMATOLOGY MCH 28.0 27.0 - 31.0 05/06/2015 [facility] MCHC 32.8 32.0 - 36.0 05/06/2015 [facility] HEMATOLOGY RDW 13.6 11.5 - 14.5 05/06/2015 [facility] HEMATOLOGY MCV 85.5 80.0 - 94.0 05/06/2015 [facility] HEMATOLOGY Sed Rate 25 0 - 15 05/06/2015 [facility] HEMATOLOGY Segs 72.3 45.0 - 75.0 05/06/2015 [facility] HEMATOLOGY Lymphocytes 16.2 20.0 - 40.0 05/06/2015 [facility] HEMATOLOGY Segs-Bands # 7.4 1.5 - 8.1 05/06/2015 [facility] HEMATOLOGY Basophils 0.5 0.0 - 1.0 05/06/2015 [facility] HEMATOLOGY Monocytes 9.6 2.0 - 12.0 05/06/2015 [facility] HEMATOLOGY Eosinophils 1.4 0.0 - 4.0 05/06/2015 [facility] HEMATOLOGY Lymphocytes # 1.7 1.0 - 5.5 05/06/2015 [facility] HEMATOLOGY Eosinophils # 0.1 0.0 - 0.5 05/06/2015 [facility] HEMATOLOGY Monocytes # 1.0 0.0 - 0.8 05/06/2015 [facility] LIPIDS VLDL 16 05/06/2015 [facility] LIPIDS LDL (Calculated) 65 <=99 mg/dL 05/06/2015 [facility] LIPIDS HDL 37 >=61 mg/dL 05/06/2015 [facility] LIPIDS Chol 118 <=199 mg/dL 05/06/2015 [facility] LIPIDS Trig 81 <=149 mg/dL 05/06/2015 [facility] LIPIDS CHD Risk 3.19 4.00 - 7.30 05/06/2015 [facility] SPECIAL CHEMISTRY Hgb A1C 6.2 <=5.6 % 05/06/2015 [facility] TOXICOLOGY Vanco Tr 6.2 05/05/2015 [facility] TOXICOLOGY Vanco Tr TND 1500 05/05/2015 [facility] CHEM PANEL Bili Total 0.8 0.2 - 1.3 05/05/2015 [facility] CHEM PANEL AST 9 0 - 37 05/05/2015 [facility] CHEM PANEL Alk Phos 78 39 - 136 05/05/2015 [facility] CHEM PANEL Globulin 3.4 2.0 - 4.0 05/05/2015 [facility] CHEM PANEL Total Protein 6.4 6.4 - 8.4 05/05/2015 [facility] CHEM PANEL B/C Ratio 18 6 - 25 05/05/2015 [facility] CHEM PANEL A/G Ratio 0.9 0.7 - 1.6 05/05/2015 [facility] CHEM PANEL Albumin Lvl 3.0 3.5 - 5.0 05/05/2015 [facility] CHEM PANEL ALT 17 0 - 65 05/05/2015 [facility] HEMATOLOGY Basophils # 0.1 0.0 - 0.2 05/05/2015 [facility] CHEM PANEL Lactic Acid Lvl 1.6 0.5 - 2.2 05/04/2015 [facility] HEMATOLOGY PT 16.4 12.0 - 14.7 05/04/2015 [facility] HEMATOLOGY INR 1.29 0.85 - 1.17 05/04/2015 [facility] HEMATOLOGY PTT 30.6 22.9 - 35.8 05/04/2015 [facility] HEMATOLOGY Basophils # 0.1 0.0 - 0.2 05/04/2015 [facility] CHEM PANEL eGFR 74 01/30/2014 <sup>1</sup>Result Comment: The eGFR is calculated using the CKD-EPI formula. In most young, healthy individuals the eGFR will be >90 mL/min/1.73m2. The eGFR declines with age. An eGFR of 60-89 may be normal in some populations, particularly the elderly, for whom the CKD-EPI formula has not been extensively validated. Use of the eGFR is not recommended in the following populations:& lt;br/>
Individuals with unstable creatinine concentrations, including patients and those with serious co-morbid conditions.

Patients with extremes in muscle mass or diet.

The data above are obtained from the National Kidney Disease Education Program (NKDEP) which additionally recommends that when the eGFR is used in patients with extremes of body mass index for purposes of drug dosing, the eGFR should be multiplied by the estimated BMI. [facility] CHEM PANEL Creatinine Lvl 1.2 0.5 - 1.4 01/30/2014 [facility] CHEM PANEL Calcium Lvl 9.5 8.5 - 10.5 01/30/2014 [facility] CHEM PANEL CO2 29 24 - 32 01/30/2014 [facility] CHEM PANEL Sodium Lvl 136 135 - 145 01/30/2014 [facility] CHEM PANEL Chloride Lvl 100 95 - 109 01/30/2014 [facility] CHEM PANEL Potassium Lvl 4.4 3.5 - 5.1 01/30/2014 [facility] CHEM PANEL Glucose Lvl 97 70 - 99 01/30/2014 <sup>2</sup>Interpretive Data: Adult ref erence range values reflect the clinical guidelines
of the [place] [employer]. [facility] CHEM PANEL BUN 15 7 - 22 01/30/2014 [facility] CHEM PANEL AGAP 11.4 10.0 - 20.0 01/30/2014 [facility] HEMATOLOGY Monocytes # 0.7 0.0 - 0.8 01/30/2014 [facility] Eosinophils # 0.4 0.0 - 0.5 01/30/2014 [facility] Segs-Bands # 4.9 1.5 - 8.1 01/30/2014 [facility] Monocytes 8.9 2.0 - 12.0 01/30/2014 [facility] Lymphocytes 20.7 20.0 - 40.0 01/30/2014 [facility] Lymphocytes # 1.6 1.0 - 5.5 01/30/2014 [facility] Basophils 0.5 0.0 - 1.0 01/30/2014 [facility] Segs 65.0 45.0 - 75.0 01/30/2014 [facility] Eosinophils 4.9 0.0 - 4.0 01/30/2014 [facility] MPV 8.7 7.4 - 10.4 01/30/2014 [facility] Hct 43.2 42.0 - 54.0 01/30/2014 [facility] MCV 85.3 80.0 - 94.0 01/30/2014 [facility] RBC 5.06 4.70 - 6.10 01/30/2014 [facility] Hgb 14.5 14.0 - 18.0 01/30/2014 [facility] WBC 7.5 3.7 - 10.4 01/30/2014 [facility] RDW 13.5 11.5 - 14.5 01/30/2014 [facility] Platelet 289 133 - 450 01/30/2014 [facility] MCHC 33.7 32.0 - 36.0 01/30/2014 [facility] MCH 28.7 27.0 - 31.0 01/30/2014 [facility] INR 1.09 0.85 - 1.17 01/30/2014 <sup>3</sup>Interpretive Data: RECOMMEND ED RANGES FOR PROTIME INR:
2.0-3.0 for most medical and surgical thromboembolic states.
2.5-3.5 for artificial heart valves and recurrent embolism.

INR SHOULD BE USED ONLY FOR PATIENTS ON STABLE ANTICOAGULANT THERAPY. [facility] HEMATOLOGY PT 14.0 12.0 - 14.7 01/30/2014 [facility] CHEM PANEL eGFR 92 01/20/2014 <sup>1</sup>Result Comment: The eGFR is calculated using the CKD-EPI formula. In most young, healthy individuals the eGFR will be >90 mL/min/1.73m2. The eGFR declines with age. An eGFR of 60-89 may be normal in some populations, particularly the elderly, for whom the CKD-EPI formula has not been extensively validated. Use of the eGFR is not recommended in the following populations:& lt;br/>
Individuals with unstable creatinine concentrations, including patients and those with serious co-morbid conditions.

Patients with extremes in muscle mass or diet.

The data above are obtained from the National Kidney Disease Education Program (NKDEP) which additionally recommends that when the eGFR is used in patients with extremes of body mass index for purposes of drug dosing, the eGFR should be multiplied by the estimated BMI. [facility] CHEM PANEL Chloride Lvl 106 95 - 109 01/20/2014 [facility] CHEM PANEL Creatinine Lvl 1.0 0.5 - 1.4 01/20/2014 [facility] CHEM PANEL BUN 19 7 - 22 01/20/2014 [facility] CHEM PANEL Calcium Lvl 8.9 8.5 - 10.5 01/20/2014 [facility] CHEM PANEL AGAP 11.5 10.0 - 20.0 01/20/2014 [facility] CHEM PANEL CO2 30 24 - 32 01/20/2014 [facility] CHEM PANEL Potassium Lvl 4.5 3.5 - 5.1 01/20/2014 [facility] CHEM PANEL Sodium Lvl 143 135 - 145 01/20/2014 [facility] CHEM PANEL Glucose Lvl 132 70 - 99 01/20/2014 <sup>2</sup>Interpretive Data: Adult ref erence range values reflect the clinical guidelines
of the [place] [employer]. [facility] Pathology Reports No Data Provided for This Section Diagnostic Reports Report Value Date Source Spine lumbar w/wo contrast MRI PROCEDURE: Spine lumbar w/wo contrast MRI REASON FOR EXAM: See Clinic Indication CLINICAL INDICATION: Backache, low back pain for 2 weeks, no specific injury COMPARISON: Lumbar spine radiography dated 05/04/2015 FINDINGS: Vertebral body heights are maintained. No fracture is seen. No aggressive osseous lesion. No evidence of discitis/osteomyelitis. No definite postoperative changes are confirmed. No abnormal enhancement. Multilevel degenerative disc disease and facet arthrosis with variable canal stenosis and neural foraminal narrowing. There is a right paracentral/foraminal disc extrusion at T12/L1 which effaces the paracentral recess. T12-L1: Right paracentral/foraminal disc extrusion measuring 5 x 3 x 7 mm which effaces the right paracentral recess and may impinge on the exiting right T12 nerve roots and descending right L1 nerve roots. Mild hypertrophic facet arthrosis. Mild canal stenosis. Moderate right neural foraminal narrowing. No left neural foraminal narrowing. L1-L2: Minimal diffuse disc bulge. Mild hypertrophic facet arthrosis. No canal stenosis. No neural foraminal narrowing. L2-L3: Minimal diffuse disc bulge. Mild hypertrophic facet arthrosis. No canal stenosis. No neural foraminal narrowing. L3-L4: Mild diffuse disc protrusion, greatest within the neural foramina and measuring up to 2-3 mm in depth. Moderate hypertrophic facet arthrosis. Mild canal stenosis. Mild bilateral neural foraminal narrowing. L4-L5: Mild diffuse disc protrusion, greatest within the neural foramina and measuring up to 2-3 mm in depth. Moderate to severe hypertrophic facet arthrosis. Mild canal stenosis.Mild right neural foraminal narrowing. Mild- moderate left neural foraminal narrowing. L5-S1: Mild right paracentral and foraminal disc protrusion measuring up to 2-3 mm in depth. Mild hypertrophic facet arthrosis. No canal stenosis. Minimal right neural foraminal narrowing. No left neural foraminal narrowing. Small right renal cyst is noted. The visualized aorta is normal in caliber. IMPRESSION: 1. No fracture, infection, abnormal enha ncement, or mass. 2. Multilevel degenerative changes inclu ding a right-sided disc extrusion at T12/L1 which effaces the right paracentral recess and may impinge on the right T12 and L1 nerve roots. 3. Degenerative changes result in only m ild canal stenosis and neural foraminal narrowing at other lumbar levels. SL: 17 05/06/2015 [facility] wo contrast MRI Examinat ion: MRI of the left elbow without contrast History: Pain and swelling Comparison: CT scan of the left elbow from 05/04/2015. TECHNIQUE: Multiplanar, multisequence magnetic resonance imaging of the left elbow was performed without administration of intravenous gadolinium contrast. Findings: Bone and joint: Anatomic alignment is maintained across the elbow. No acute bony fracture, joint dislocation, or suspicious osseous erosion is seen. No focal marrow signal intensity abnormality is noted. There is a moderate-sized elbow joint effusion. No osteochondral lesion is seen. No intra-articular loose body is identified. Ligaments and tendons: The triceps, biceps, and brachialis tendon insertions are intact. The common flexor tendon at the origin is intact. Anterior and posterior bundles of the ulnar collateral ligament are intact. The common extensor tendon at the origin is intact. The lateral ulnar collateral ligament and radial collateral ligament proper are intact. Soft tissues: Lobulated T2 hyperintense fluid collection in the dorsal subcutaneous soft tissues overlying the elbow is seen measuring 2.6 x 0.9 x 2.9 cm. There is extensive inflammatory signal throughout the dorsal circumferential soft tissues of the elbow. The ulnar nerve is normal in signal intensity and morphology. IMPRESSION: 1. Circumscribed 2.6 x 0.9 x 2.9 cm flui d collection along the dorsal soft tissues of the elbow with extensive surrounding inflammatory soft tissue signal. This is suspicious for an olecranon bursitis. Septic bursitis cannot be excluded. 2. No acute bony abnormality of the left elbow and no evidence of osteomyelitis. 3. Moderate-sized elbow joint effusion. SL: 16 05/06/2015 [facility] Spine lumbar 2 or 3 views DX H ISTORY: Back pain and radiculopathy. Lumbar spine 2 views. Normal vertebral height and alignment. No fracture subluxation or lesion is evident. No spondylolysis or spondylolisthesis appreciated. IMPRESSION: No acute finding. SL:13 05/04/2015 [facility] Chest 2 views DX HISTORY: Shor tness of breath. Two views chest. Comparison 02/09/2010. Interval median sternotomy. The pulmonary vasculature appears subtly congested. Mild bibasilar atelectasis. No pleural effusion. SL:13 05/04/2015 [facility] Elbow w contrast CT EXAM: CT left elbow. HISTORY: Erythema, swelling and pain left elbow, evaluate for a cellulitis, abscess. COMPARISON: Radiograph same day TECHNIQUE: Axial images left elbow with sagittal and coronal reformats. IV contrast given. FINDINGS: Moderately extensive soft tissue edema and reticulation in the elbow adjacent to the olecranon and extending dorsally along the subcutaneous soft tissues of the proximal forearm. This may reflect complicated olecranon bursitis versus a cellulitis. No definite abscess is seen. The bones appear intact without osteomyelitis. No fracture is seen. SL: 17 05/04/2015 [facility] Elbow 3 views DX Examination: Left elbow, 3 views History: Pain and swelling Comparison: None. Findings: Multiple views of the left elbow show no acute bony fracture, joint dislocation, or suspicious osseous erosion. Diffuse dorsal soft tissue swelling is seen. No radiopaque foreign body or soft tissue gas is seen. IMPRESSION: No acute bony abnormality of the left elbow and no radiographic evidence of osteomyelitis. SL: 16 05/04/2015 [facility] Ext Lower Venous Doppler Unilat US HISTORY: Pain. Right lower [place] venous Doppler ultrasound exam. Normal compressibility and flow in the common femoral, superficial femoral and popliteal venous segments. Normal distal augmentation. IMPRESSION: No evidence for right lower extremity DVT. There is a large joint effusion suggested in the suprapatellar region. SL:12 01/30/2014 [facility] Consultation Notes No Data Provided for This Section Discharge Summaries No Data Provided for This Section History and Physicals No Data Provided for This Section Vital Signs Vital Sign Value Date Comments Source Systolic (mm Hg) 153 09/14/[facility] Diastolic (mm Hg) 75 09/14/[facility] Heart Rate 68 09/14/2019 [facility] Respitory Rate 16 09/14/2019 [facility] Temperature Oral (F) 98.0 F 09/14/2019 [facility] Height 170.18 cm 09/14/2019 [facility] Weight 76.108 09/14/2019 [facility] BMI Calculated 26.28 09/14/2019 [facility] Systolic (mm Hg) 142 07/20/2019 [facility] Diastolic (mm Hg) 66 07/20/2019 [facility] Heart Rate 58 07/20/2019 [facility] Temperature Oral (F) 98.1 F 07/20/2019 [facility] Height 170.18 cm 07/20/2019 [facility] Weight 75.818 07/20/2019 [facility] BMI Calculated 26.18 07/20/2019 [facility] BMI Calculated 25.94 12/17/2018 [facility] Weight 75.114 12/17/2018 [facility] Height 170.18 cm 12/17/2018 [facility] Temperature Oral (F) 98.1 F 12/17/2018 [facility] Respitory Rate 16 12/17/2018 [facility] Heart Rate 67 12/17/2018 [facility] Systolic (mm Hg) 152 12/17/2018 [facility] Diastolic (mm Hg) 83 12/17/2018 [facility] Temperature Oral (F) 97.9 F 11/10/2018 [facility] Heart Rate 69 11/10/2018 [facility] [facility] Respitory Rate 16 11/10/2018 [facility] Height 170.18 cm 11/10/2018 [facility] Weight 74.091 11/10/2018 [facility] BMI Calculated 25.58 11/10/2018 [facility] Systolic (mm Hg) 157 11/10/2018 [facility] Diastolic (mm Hg) 74 11/10/2018 [facility] Temperature Oral (F) 97.9 F 09/17/2018 [facility] Respitory Rate 16 09/17/2018 [facility] Systolic (mm Hg) 176 09/17/2018 [facility] Diastolic (mm Hg) 80 09/17/2018 [facility] Heart Rate 80 09/17/2018 [facility] Weight 78.182 09/17/2018 [facility] BMI Calculated 27 09/17/2018 [facility] Height 170.18 cm 09/17/2018 [facility] BMI Calculated 26.37 09/11/2018 [facility] Height 170.18 cm 09/11/2018 [facility] Weight 76.364 09/11/2018 [facility] Systolic (mm Hg) 158 09/11/2018 [facility] Diastolic (mm Hg) 82 09/11/2018 [facility] Heart Rate 79 09/11/2018 [facility] Height 170.18 cm 06/25/2018 [facility] Weight 76.818 06/25/2018 [facility] BMI Calculated 26.52 06/25/2018 [facility] Temperature Oral (F) 98.1 F 06/25/2018 [facility] Respitory Rate 16 06/25/2018 [facility] Heart Rate 75 06/25/2018 [facility] Systolic (mm Hg) 171 06/25/2018 [facility] Diastolic (mm Hg) 65 06/25/2018 [facility] Weight 76.364 06/12/2018 [facility] Respitory Rate 16 06/12/2018 [facility] Temperature Oral (F) 98.0 F 06/12/2018 [facility] Systolic (mm Hg) 163 06/12/2018 [facility] Diastolic (mm Hg) 76 06/12/2018 [facility] Heart Rate 74 06/12/2018 [facility] BMI Calculated 25.96 03/13/2018 [facility] Heart Rate 76 03/13/2018 [facility] Respitory Rate 14 03/13/2018 [facility] Temperature Oral (F) 99.2 F 03/13/2018 [facility] Height 170.18 cm 03/13/2018 [facility] Weight 75.17 03/13/2018 [facility] Systolic (mm Hg) 150 03/13/2018 [facility] Diastolic (mm Hg) 75 03/13/2018 [facility] BMI Calculated 25.9 01/08/2018 [facility] Weight 75 0 01/08/2018 [facility] Height 170.18 cm 01/08/2018 [facility] Heart Rate 83 01/08/2018 [facility] Systolic (mm Hg) 163 01/08/2018 [facility] Diastolic (mm Hg) 78 01/08/2018 [facility] Temperature Oral (F) 98.5 F 01/08/2018 [facility] BMI Calculated 26.37 12/03/2017 [facility] Weight 76.364 12/03/2017 [facility] Height 170.18 cm 12/03/2017 [facility] Temperature Oral (F) 98.0 F 12/03/2017 [facility] Heart Rate 67 12/03/2017 [facility] Systolic (mm Hg) 153 12/03/2017 [facility] Diastolic (mm Hg) 80 12/03/2017 [facility] BMI Calculated 25.9 11/14/2017 [facility] Height 170.18 cm 11/14/2017 [facility] Weight 75 0 11/14/2017 [facility] Temperature Oral (F) 99.6 F 11/14/2017 [facility] Heart Rate 117 11/14/2017 [facility] Respitory Rate 14 11/14/2017 [facility] Systolic (mm Hg) 151 11/14/2017 [facility] Diastolic (mm Hg) 71 11/14/2017 [facility] BMI Calculated 25.94 10/16/2017 [facility] Weight 75.114 10/16/2017 [facility] Systolic (mm Hg) 180 10/16/2017 [facility] Diastolic (mm Hg) 89 10/16/2017 [facility] Heart Rate 90 10/16/2017 [facility] Temperature Oral (F) 98.7 F 10/16/2017 [facility] Respitory Rate 14 10/16/2017 [facility] Height 170.18 cm 10/16/2017 [facility] Height 170.18 cm 09/18/2017 [facility] Weight 77.443 09/18/2017 [facility] BMI Calculated 26.74 09/18/2017 [facility] Systolic (mm Hg) 147 09/18/2017 [facility] Diastolic (mm Hg) 66 09/18/2017 [facility] Respitory Rate 14 09/18/2017 [facility] Heart Rate 69 09/18/2017 [facility] Temperature Oral (F) 98.4 F 09/18/2017 [facility] Height 170.18 cm 08/01/2017 [facility] Temperature Oral (F) 98.6 F 08/01/2017 [facility] Heart Rate 95 08/01/2017 [facility] Respitory Rate 14 08/01/2017 [facility] Systolic (mm Hg) 137 08/01/2017 [facility] Diastolic (mm Hg) 66 08/01/2017 [facility] BMI Calculated 26.37 08/01/2017 [facility] Weight 76.364 08/01/2017 [facility] Systolic (mm Hg) 147 07/05/2017 [facility] Diastolic (mm Hg) 82 07/05/2017 [facility] Temperature Oral (F) 98.7 F 07/05/2017 [facility] Respitory Rate 14 07/05/2017 [facility] Heart Rate 80 07/05/2017 [facility] BMI Calculated 26.56 07/05/2017 [facility] Weight 76.932 07/05/2017 [facility] Height 170.18 cm 07/05/2017 [facility] BMI Calculated 26.92 06/19/2017 [facility] Weight 77.955 06/19/2017 [facility] Systolic (mm Hg) 123 06/19/2017 [facility] Diastolic (mm Hg) 61 06/19/2017 [facility] Heart Rate 61 06/19/2017 [facility] Height 170.18 cm 06/19/2017 [facility] Temperature Oral (F) 98.7 F 06/19/2017 [facility] Respitory Rate 14 06/19/2017 [facility] Height 170.18 cm 06/11/2017 [facility] Weight 76.364 06/11/2017 [facility] BMI Calculated 26.37 06/11/2017 [facility] Heart Rate 60 06/11/2017 [facility] Respitory Rate 14 06/11/2017 [facility] Temperature Oral (F) 99.3 F 06/11/2017 [facility] Systolic (mm Hg) 124 06/11/2017 [facility] Diastolic (mm Hg) 67 06/11/2017 [facility] Diastolic (mm Hg) 74 05/09/2015 [facility] 73 05/09/2015 [facility] Systolic (mm Hg) 146 05/09/2015 [facility] Respitory Rate 18 05/09/2015 [facility] Temperature Oral (F) 98.5 F 05/09/2015 [facility] Heart Rate 64 05/09/2015 [facility] Systolic (mm Hg) 210 05/09/2015 [facility] Diastolic (mm Hg) 83 05/09/2015 [facility] Temperature Oral (F) 97.8 F 05/09/2015 [facility] Respitory Rate 16 05/09/2015 [facility] Heart Rate 59 05/09/2015 [facility] Systolic (mm Hg) 180 05/09/2015 [facility] Diastolic (mm Hg) 84 05/09/2015 [facility] Respitory Rate 16 05/09/2015 [facility] Temperature Oral (F) 97.7 F 05/09/2015 [facility] Weight 82.002 05/05/2015 [facility] BMI Calculated 28.31 05/05/2015 [facility] Height 170.18 cm 05/05/2015 [facility] Weight 79.545 05/04/2015 [facility] BMI Calculated 27.47 05/04/2015 [facility] Height 170.18 cm 05/04/2015 [facility] Heart Rate 76 01/30/2014 [facility] Respitory Rate 20 01/30/2014 [facility] Temperature Oral (F) 99.0 F 01/30/2014 [facility] Diastolic (mm Hg) 68 01/30/2014 [facility] Systolic (mm Hg) 128 01/30/2014 [facility] Weight 77.273 01/30/2014 [facility] BMI Calculated 26.68 01/30/2014 [facility] Height 170.18 cm 01/30/2014 [facility] Temperature Oral (F) 99.1 F 01/30/2014 [facility] Respitory Rate 20 01/30/2014 [facility] Diastolic (mm Hg) 76 01/30/2014 [facility] Heart Rate 102 01/30/2014 [facility] Systolic (mm Hg) 148 01/30/2014 [facility] Systolic (mm Hg) 120 01/22/2014 [facility] Diastolic (mm Hg) 49 01/22/2014 [facility] Systolic (mm Hg) 123 01/22/2014 [facility] Diastolic (mm Hg) 49 01/22/2014 [facility] Diastolic (mm Hg) 58 01/22/2014 [facility] Systolic (mm Hg) 122 01/22/2014 [facility] Respitory Rate 10 01/22/2014 [facility] Respitory Rate 12 01/22/2014 [facility] Respitory Rate 11 01/22/2014 [facility] Heart Rate 61 01/22/2014 [facility] Heart Rate 61 01/22/2014 [facility] Weight 77.273 01/20/2014 [facility] Height 170.18 cm 01/20/2014 [facility] BMI Calculated 26.68 01/20/2014 [facility] Height 170.18 cm 12/04/2011 [facility] Weight 77.273 12/04/2011 [facility] Encounters Location Location Details Encounter Type Encounter Number Reason For Visit Attending Provider ADM Date DC Date Status Source [facility] Emergency [id number] [place] ADVENTIST 12/04/2011 12/04/2011 Discharged [facility] Outpatient [id number] SHUL[facility] 06/27/2012 Active [facility] OBS Day Surgery [id number] Corey Mc Jr 01/22/2014 01/22/2014 [facility] OP Therapy Patients [id number] Corey Mc Jr 01/26/2014 02/25/2014 [facility] [id number] Nette Munguiaen 01/30/2014 01/30/2014 [facility] OP Therapy Patients [id number] Corey Mc Jr 02/25/2014 03/27/2014 [facility] OP Therapy Patients [id number] Corey Mc Jr 03/30/2014 04/29/2014 [facility] [place] Outpatient [id number] MILA ESTEBAN 05/04/2015 Active [facility] Outpatient [id number] MILA ESTEBAN 05/04/2015 Active [facility] Inpatient [id number] Balwinder Ramirez 05/04/2015 05/09/2015 [facility] Outpatient [id number] DEO COLLAZO 05/12/2015 Active [facility] Outpatient [id number] DEO COLLAZO 06/08/2015 Active [facility] Outpatient [id number] MILA ESTEBAN 06/28/2015 Active [facility] Outpatient [id number] MILA ESTEBAN 07/26/2015 Active [facility] Outpatient [id number] MILA ESTEBAN 08/05/2015 Active [facility] [id number] HARVEY SOMERS 11/01/2015 Active [facility] Outpatient [id number] MILA ESTEBAN 04/18/2016 Active [facility] Outpatient [id number] MILA ESTEBAN 05/01/2016 Active [facility] Outpatient [id number] MILA RECAVARDARRIUS 05/01/2016 Active [facility] Outpatient [id number] MILA RECAVARDARRIUS 06/01/2016 Active [facility] Outpatient [id number] MILA RECAREUBEN 07/09/2016 Active [facility] Outpatient [id number] MILA RECAREUBEN 08/01/2016 Active [facility] Outpatient [id number] MILA ESTEBAN 10/08/2016 Active [facility] Outpatient [id number] MILA ESTEBAN 02/07/2017 Active [facility] Outpatient [id number] MILA ESTEBAN 05/02/2017 Active [facility] Outpatient [id number] MILA ESTEBAN 05/16/2017 Active [facility] Outpatient [id number] MILA ESTEBAN 06/11/2017 [facility] Outpatient [id number] Mila Espitia 05/2906/12/2017 [facility] Outpatient [id number] MILA ESTEBAN 06/18/2017 Active [facility] Ambulatory Pre-Reg [id number] Mila Espitia 06/18/2017 06/18/2017 [facility] Outpatient [id number] MILA ESTEBAN 06/19/2017 [facility] Outpatient [id number] Mila Espitia 05/3006/20/2017 [facility] Outpatient [id number] MILA ESTEBAN 07/05/2017 Active [facility] Outpatient [id number] Mila Espitia 12/02/201707/06/2017 [facility] Outpatient [id number] GARLAND PA 08/01/2017 Active [facility] Outpatient [id number] [place] Pa 08/01/2017 08/02/2017 [facility] Outpatient [id number] MILA ESTEBAN 08/21/2017 Active [facility] Outpatient [id number] MILA ESTEBAN 09/18/2017 Active [facility] Outpatient [id number] Mila Esteban Espitia 08/3009/19/2017 [facility] Outpatient [id number] MILA ESTEBAN 10/16/2017 Active [facility] Outpatient [id number] Mila Esteban Espitia 09/2710/17/2017 [facility] Outpatient [id number] MILA ESTEBAN 11/14/2017 Active [facility] Outpatient [id number] Mila Espitia 10/2711/15/2017 [facility] Outpatient [id number] [place] PA 12/03/2017 Active [facility] Outpatient [id number] Mila Esteban Espitia 02/201812/04/2017 [facility] Outpatient [id number] MILA ESTEBAN 01/08/2018 Active [facility] Outpatient [id number] Mila Espitia 12/2701/09/2018 [facility] Primary Care [facility] Phone Message [id number] 01/13/2018 01/15/2018 [facility] Outpatient [id number] MILA ESTEBAN 01/20/2018 Active [facility] Ambulatory Pre-Reg [id number] Mila Espitia 01/20/2018 01/20/2018 [facility] Primary Care [facility] Phone Message [id number] 01/24/2018 01/26/2018 [facility] Outpatient [id number] MILA ESTEBAN 03/13/2018 Active [facility] Outpatient [id number] Mila Esteban Espitia 02/2603/14/2018 [facility] Outpatient [id number] MILA ESTEBAN 06/12/2018 Active [facility] Outpatient [id number] Mila Esteban Espitia 05/2906/13/2018 [facility] Outpatient [id number] MILA ESTEBAN 06/25/2018 Active [facility] Outpatient [id number] Mila Esteban Espitia 05/3006/26/2018 [facility] Outpatient [id number] MILA ESTEBAN 09/11/2018 Active [facility] Outpatient [id number] Mila Esteban Espitia 08/2909/12/2018 [facility] Phone Message [id number] 09/15/2018 09/17/2018 [facility] Outpatient [id number] MILA ESTEBAN 09/17/2018 Active [facility] Primary [facility] Outpatient [id number] Mila Esteban Espitia 08/3009/18/2018 [facility] Outpatient [id number] Mila Esteban Espitia 11/10/2018 Active [facility] Primary [facility] Outpatient [id number] Mila Esteban Espitia 10/2711/11/2018 [facility] Outpatient [id number] Mila Esteban Espitia 12/17/2018 Active [facility] Primary [facility] Outpatient [id number] Mila Esteban Espitia 11/2712/18/2018 [facility] [place] Phone Message [id number] 07/13/2019 07/15/2019 [facility] Outpatient [id number] Mila Esteban Espitia 07/20/2019 Active [facility] [place] Outpatient [id number] Mila Esteban Espitia 06/2907/21/2019 [facility] Outpatient [id number] Mila Esteban Espitia 09/14/2019 Active [facility] [place] Outpatient [id number] Mila Esteban Espitia 08/2909/15/2019 [facility] [place] Between Visit [id number] 10/19/2019 10/20/2019 [facility] [place] Phone Message [id number] 11/17/2019 11/19/2019 [facility] Outpatient [id number] Mila Espitia 01/18/2020 Active [facility] Procedures Procedure Code Date Perfomer Comments Source Procedure on elbow joint<sup>1</sup> [id number] 04/28/2015 Incision and drainage [facility] Operation [id number] 04/13/2011 [facility] Tricuspid valve operation [id number] 05/13/2010 [facility] Steroid injection into medial epicondyle tendon of humerus [id number] 07/29/2009 [facility] Injection into joint [id number] [facility] Open heart surgery [id number] [facility] Assessment and Plan Assessment and Plan Date Source Extracted from:Title: Clinical Document Author: Mayela Haile MD Date: 05/08/15 Ifectious Disease Progress Note [facility] Dr. Mayela Haile SUBJECTIVE Events reviewed. Met with the family/ OBJECTIVE Gen: alert, no acute distress, follow command HEENT: not pale, not icteric, normal cephalic, Neck: Supple, no jvd, CV: S1, S2, no murmurs Lung: clear bilateral course BS Abd: soft, bowel sound normal, no tenderness Ext: no edema Skin: no rash Neuro: no seizure, no local finding Vitals and Temp: Vitals Tmp(F) Pulse BP RR SpO2 FIO2 05/08 07:40 98.3 51 159/73 1 4 99 --- 05/08 03:49 97.7 64 158/71 1 5 99 --- 05/07 23:23 98.6 58 150/71 1 5 99 --- 05/07 20:03 ---- --- ----- 1 2 100 21% 05/07 19:25 97.8 53 125/67 1 2 100 --- 24 Hr Tmax: 98.8F (37.11c) at 05/07 11:0 0 Vital Signs are the last 5 in the past 48 hours. Input/Output Record In Out Bal 05/08 24hr Tot 250 0 250 05/07 24hr Tot 1954 0 1954 Physical Exam Labs (Last four charted values) WBC 6.0 (MAY 08) 10.2 (MAY 06) H 16.4 (APR 08) H 18.5 (MAY 04) Hgb L 12.9 (MAY 08) L 13.3 (MAY 06) L 12.8 (MAY 05) 14.3 (MAY 04) Hct L 39.3 (MAY 08) L 40.7 (MAY 06) L 39.7 (MAY 05) 44.1 (MAY 04) Plt 211 (MAY 08) 224 (MAY 07) 197 (MAY 06) 165 (MAY 05) Na 139 (MAY 08) 136 (MAY 06) 137 (MAY 05) 136 (MAY 04) K 4.1 (MAY 08) 3.7 (MAY 06) 3.8 (MAY 05) 3.9 (MAY 04) CO2 29 (MAY 08) 28 (MAY 06) 26 (MAY 05) 25 (MAY 04) Cl 104 (MAY 08) 102 (MAY 06) 106 (MAY 05) 105 (MAY 04) Cr 1.0 (MAY 08) 1.1 (MAY 07) 1.1 (MAY 06) 1.0 (MAY 05) BUN 18 (MAY 08) 15 (MAY 06) 18 (MAY 05) 16 (MAY 04) Glucose Random H 101 (MAY 08) 97 (MAY 06) H 119 (MAY 05) H 176 (MAY 04) Ca L 8.4 (MAY 08) 8.5 (MAY 06) L 8.1 (MAY 05) 8.8 (MAY 04) PT H 16.4 (MAY 04) INR H 1.29 (MAY 04) PTT 34.1 (MAY 07) 30.6 (MAY 04) Medications Scheduled Meds (11):aspirin, citalopram, docusate (docusate sodium 100 mg oral capsule), enoxaparin, furosemide (furosemide 40 mg oral tablet), ketOROLAC, losartan, minoxidil, pantoprazole, tizanidine (Zanaflex), vancomycin Unscheduled Meds: None PRN Meds (14):ALPRAZolam (ALPRAZOLam), Al hydroxide/Mg hydroxide/simethicone (Al hydroxide/Mg hydroxide/simethicone 200 mg-200 mg-20 mg/5 mL oral suspension), acetaminophen-codeine (Tylenol with Codeine #3 oral tablet), acetaminophen- hydrocodone (acetaminophen-hydrocodone 325 mg-10 mg oral tablet), acetaminophen (Tylenol), acetaminophen, bisacodyl (Dulcolax Laxative), diphenhydrAMINE, ibuprofen, morphine Sulfate, morphine Sulfate, promethazine + Sodium Chloride 0.9% IV 50 mL, sodium chloride (Saline Flush 0.9%), zolpidem One Time Meds: None Continuous Infusions (1):Lactated Ringers Injection IV 1,000 mL (Lactated Ringers IV 1,000 mL) ALL LABS REVIEW AND ALL RADIOLOGY REPORTS REVIEWED IMPRESSION Left elbow septic bursitis.s/p 1. Irrigation and debridement, left elbow. 2. Excision of left elbow olecranon bur sa gpc cont iv abx bursitis better chencho pain will get mri ongenital heart disease and he had a heart murmur. In the year 2009, he had a tricuspid valve repair and then 2010, he had a bioprosthetic tricuspid valve replacement. He also had a coarctation of the aorta, which was repaired with a graft in . Hypertension. 3. Coronary artery disease. 4. Dehydration. back pain sec to oa 05/09/2015 [facility] Plan of Care No Data Provided for This Section Social History Social History Date Source Social History TypeResponse Alcohol Current, Type Beer. Frequency: 1-2 times per month. Employment/School Status: Employed. Work/School description: technicial air conditioning. Exercise Exercise duration: 30. Exercise frequency: 5-6 times/week. Exercise type: Walking.1 Substance Abuse Use: None. Smoking Status Never smoker; Type: Cigars; Exposure to Tobacco Smoke None; Cigarette Smoking Last 365 Days No; Reg Smoking Cessation Counseling No entered on: 09/14/19 1job 09/14/2019 [facility] Social History TypeResponse Alcohol Current, Type Beer. Frequency: 1-2 times per month. Smoking Status Never smoker; Exposure to Tobacco Smoke None; Cigarette Smoking Last 365 Days No; Reg Smoking Cessation Counseling No 05/04/2015 [facility] Social History TypeResponse Alcohol Use: Current, Type: Beer, Frequency: 1-2 times per month Smoking Status Never smoker, Exposure to Tobacco Smoke None, Cigarette Smoking Last 365 Days No, Reg Smoking Cessation Counseling No 01/20/2014 [facility] [place] Family History No Data Provided for This Section Advance Directives No Data Provided for This Section Functional Status No Data Provided for This Section
--- OUTSIDE RECORDS SUMMARY | 2019-12-11 11:38 | XMS REPORT | Summary of Care ---
Author Organization Unknown Address Unknown Phone Unavailable Encounter [facility] [email or web address]_bebo(FIN) [id number] Date(s): 01/26/14 - 02/24/14 [facility] [place] Discharge Disposition: Home Physician Attending: Corey Alanis MD Reason for Visit RT KNEE Problem List Condition Effective Dates Status Health Status Informan t Abnormal EKG Active finding(Confirmed)1 Acid Active reflux(Confirmed) Anxiety(Confirmed) Active Back pain(Confirmed) Active Hypertension(Confirm Active ed) 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 See's [address] Leslie Grant Allergies, Adverse Reactions, Alerts Substance Reaction Severity Status penicillins Active Medications No data available for this section Medications Administered During Your Visit No data available for this section Immunizations No data available for this section Social History Social History Type Response Alcohol Use: Current, Type: Beer, F requency: 1-2 times per month Smoking Status Never smoker, Exposure to T obacco Smoke None, Cigarette Smoking Last 365 Days No, Reg Smoking Cessation Counseli ng No
--- OUTSIDE RECORDS SUMMARY | 2019-12-11 11:38 | XMS REPORT | Summary of Care ---
Author Author [facility] Primary [facility] Organization [facility] Address Unknown Phone Unavailable Encounter LEELEE Carty(FIN) [id number] Date(s): 10/16/17 - 10/16/17 [facility] [address], [address] [place] [address]- [phone] Discharge Disposition: Home or Self Care Attending Physician: Mila Houston MD Vital Signs Most recent to 1 oldest [Reference Range]: Height 170.18 cm (10/16/17 11:06 AM) Temperature Oral 98.7 DegF [96.4-99.1 DegF] (10/16/17 11:06 AM) Blood Pressure 180/89 mmHg [90-140/60-90 mmHg] *HI* (10/16/17 11:06 AM) Respiratory Rate 14 BRMIN [14-20 BRMIN] (10/16/17 11:06 AM) Peripheral Pulse 90 bpm Rate [60-100 bpm] (10/16/17 11:06 AM) Weight 75.114 kg (10/16/17 11:06 AM) Body Mass Index 25.94 m2 (10/16/17 11:06 AM) Problem List Condition Effective Dates Status Health Status Informan t Abnormal EKG Active finding(Confirmed)1 Acid Active reflux(Confirmed) Anemia(Confirmed) Active Anxiety(Confirmed) Active Canker Active sore(Confirmed) Back pain(Confirmed) Active Benign essential Active HTN(Confirmed) Chronic diastolic 01/12/15 Active heart failure(Confirmed)2 B12 Active deficiency(Confirmed ) Low serum vitamin Active D(Confirmed) 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 Originally documented as PENICILLIN. Medications No Known Medications Results No data available for this section Immunizations Given and Recorded Vaccine Date Status Refusal Reason influenza virus vaccine, inactivated 03/31/17 R ecorded influenza virus vaccine, inactivated 05/05/15 G iven influenza virus vaccine, inactivated1 04/24/13 Given pneumococcal 23-valent vaccine 05/05/15 Given diphtheria/pertussis, acel/tetanus adult 05/04/15 Given Hx influenza vaccine-unspecified2 04/24/13 Give n 1Result Comment: fluzone (>3 yrs.) [[id number]]. Migrated from OBS ; Data migrated from [...] Smoking C essation Counseling No entered on: 01/08/18 Assessment and Plan No data available for this section
--- OUTSIDE RECORDS SUMMARY | 2019-12-11 11:38 | XMS REPORT | Summary of Care ---
Author Author [facility] Care [facility] Organization [facility] Address Unknown Phone Unavailable Care Team Providers Care Regional Service Manager Name Role Phone Mila Houston PCP Encounter HQ Xavier_[email or web address](FIN) [id number] Date(s): 06/25/18 - 06/25/18 [facility] [address] [address]- Discharge Disposition: Home or Self Care Attending Physician: Mila Houston MD Vital Signs Most recent to 1 oldest [Reference Range]: Height 170.18 cm (06/25/18 8:02 AM) Temperature Oral 98.1 DegF [96.4-99.1 DegF] (06/25/18 8:02 AM) Blood Pressure 171/65 mmHg [90-140/60-90 mmHg] *HI* (06/25/18 8:02 AM) Respiratory Rate 16 BRMIN [14-20 BRMIN] (06/25/18 8:02 AM) Peripheral Pulse 75 bpm Rate [60-100 bpm] (06/25/18 8:02 AM) Weight 76.818 kg (06/25/18 8:02 AM) Body Mass Index 26.52 m2 (06/25/18 8:02 AM) Problem List Condition Effective Dates Status [...] on 02/24/15. Originally documented as PENICILLIN. Medications furosemide 20 mg oral tablet 20 mg = 1 tab, PO, Every Other Day, # 45 tab, 1 Refill(s), Pharmacy: [facility] [id number] Start Date: 06/25/18 Stop Date: 11/10/18 Status: Discontinued salicylic acid 17% topical kit See Instructions, apply only on affected area daily for 30days, # 1 btl, 0 Refil l(s), [facility] Start Date: 06/25/18 Stop Date: 09/11/18 Status: Discontinued Results No data available for this section [...] tolerated well 2Result Comment: fluzone (>3 yrs.) [[id number]]. Migrated from OBS ; Data migrated from [facility] on 08/30/2015. 3Result Comment: done. Migrated from OBS ; Data migrated from [facility] on 08/30/2015. Procedures Procedure Date Related Diagnosis [...] Smoking C essation Counseling No entered on: 12/17/18 Assessment and Plan No data available for this section
--- OUTSIDE RECORDS SUMMARY | 2019-12-11 11:38 | XMS REPORT | Summary of Care ---
Author Author [facility] Primary Care [facility] Primary [facility] [place] Address Unknown Phone Unavailable Encounter HQ Machelle(FIN) [id number] Date(s): 11/17/19 - 11/18/19 [facility] Primary Care [place] [address] [facility] [address] [place] [address]- [phone] Vital Signs No data available for this [...] 12/25/14. 8Data migrated from [employer] on 5/30/15. 9Data migrated from [employer] on 12/25/14. Allergies, Adverse Reactions, Alerts Substance Reaction Severity Status penicillins1, 2 Active 1Data migrated from [employer] on 02/25/15. Originally documented as PENICILLIN. rash on body 2Data migrated from [employer] on 02/24/15. Originally documented as PENICILLIN. Medications olmesartan 40 mg oral tablet 40 mg = 1 tab, PO, Daily, # 90 tab, 1 Refill(s), Pharmacy: [facility] 8 [id number] Start Date: 11/18/19 Stop Date: 05/16/20 Status: Ordered Results No data available for this section Immunizations Given and Recorded Vaccine Date Status Refusal Reason influenza virus vaccine, inactivated 06/02/19 R ecorded influenza virus vaccine, inactivated1 06/12/18 Given influenza virus vaccine, inactivated 03/31/17 R ecorded influenza virus vaccine, inactivated 05/05/15 G iven influenza virus vaccine, inactivated2 04/24/13 Given pneumococcal 23-valent vaccine 05/05/15 Given diphtheria/pertussis, acel/tetanus adult 05/04/15 Given Hx influenza vaccine-unspecified3 04/24/13 Give n 1Result Comment: Patient tolerated well 2Result Comment: fluzone (>3 yrs.) [[id number]]. Migrated from OBS ; Data migrated from [employer] on 08/30/2015. 3Result Comment: done. Migrated from OBS ; Data migrated from [employer] on 08/30/2015. Procedures Procedure Date Related Diagnosis Body Site Status Procedure on elbow joint1 04/2015 Completed Operation 04/13/11 Completed Tricuspid valve operation 05/13/10 Completed Injection into joint Completed Open heart surgery Completed 1Incision and drainage Social History Social History Type Response Alcohol Current, Type Beer. Freque ncy: 1-2 times per month. Employment/School Status: Employed. Work/Mari ool description: technicial air conditioning. Exercise Exercise duration: 30. Exe rcise frequency: 5-6 times/week. Exercise type: Walking.1 Substance Abuse Use: None. Smoking Status Never smoker; Type: Cigars; Exposure to Tobacco Smoke None; Cigarette Smoking Last 365 Days No; Reg Smoking C essation Counseling No entered on: 09/14/19 1job Assessment and Plan No data available for this section
--- OUTSIDE RECORDS SUMMARY | 2019-12-11 11:38 | XMS REPORT | Summary of Care ---
Author Author [facility] Primary [facility] Organization [facility] Address Unknown Phone Unavailable Encounter HQ Annier_bebo(FIN) [id number] Date(s): 01/20/18 - 01/20/18 [facility] [address] [facility], [address] [place] [address]- [phone] Attending Physician: Mila Houston MD Vital Signs [...] PENICILLIN. rash on body 2Data migrated from [employer] on 02/24/15. Originally documented as PENICILLIN. Medications [...] Give n 1Result Comment: fluzone (>3 yrs.) [[id number]]. Migrated from OBS ; Data migrated from [employer] on 08/30/2015. 2Result Comment: done. Migrated from OBS ; Data migrated from [employer] on 08/30/2015. Procedures Procedure Date Related Diagnosis [...]
--- OUTSIDE RECORDS SUMMARY | 2019-12-11 11:38 | XMS REPORT | Summary of Care ---
Author Author [facility] Primary Care [facility] Primary Care [place] Address Unknown Phone Unavailable Care Team Providers Care Hydroelectric Station Operator Chief Name Role Phone Mila Houston PCP Encounter HQ Annier_bebo(FIN) [id number] Date(s): 10/19/19 - 10/20/19 [facility] Primary Care [place] [id number] [place] [address] [address] [place] [address]- [phone] Vital Signs No data available for this [...] tolerated well 2Result Comment: fluzone (>3 yrs.) [[id number]]. Migrated from OBS ; Data migrated from [employer] on 08/30/2015. 3Result Comment: done. Migrated from [...]
--- OUTSIDE RECORDS SUMMARY | 2019-12-11 11:38 | XMS REPORT | Summary of Care ---
Author Author [facility] Primary Care [facility] Primary Care [place] Address Unknown Phone Unavailable Care Team Providers Care Edge Polisher Name Role Phone Mila Houston PCP Encounter HQ Xavier_bebo(FIN) [id number] Date(s): 09/14/19 - 09/14/19 [facility] Primary Care [address] [place], [place] [address]- [phone] Discharge Disposition: Home or Self Care Attending Physician: Mila Houston MD Vital Signs Most recent to 1 oldest [Reference Range]: Height 170.18 cm (09/14/19 3:25 PM) Temperature Oral 98.0 DegF [96.4-99.1 DegF] (09/14/19 3:25 PM) Blood Pressure 153/75 mmHg [90-140/60-90 mmHg] *HI* (09/14/19 3:25 PM) Respiratory Rate 16 BRMIN [14-20 BRMIN] (09/14/19 3:25 PM) Peripheral Pulse 68 bpm Rate [60-100 bpm] (09/14/19 3:25 PM) Weight 76.108 kg (09/14/19 3:25 PM) Body Mass Index 26.28 m2 (09/14/19 3:25 PM) Problem List Condition Effective Dates Status Health [...] tolerated well 2Result Comment: fluzone (>3 yrs.) [[id number]]. Migrated from OBS ; Data migrated from [...]
--- OUTSIDE RECORDS SUMMARY | 2019-12-11 11:38 | XMS REPORT | CCD ---
Author Author Auto GeneratedMEHREEN [facility] Address Unknown Phone Unavailable Care Team Providers Care High School Biology Teacher Name Role Phone Jerry Cline CP Allergies, Adverse Reactions, Alerts Substance Reaction Status penicillins Active Medications Medication Instructions Start Date End Date Status phenylephrine nasal 2 spray, Route: NASAL, ONCE, Drug 12/04/2011 12/04/2011 Completed 0.5% solution form: DROP, Start date: 03/09 2:21:00, Stop date: 12/04/11 2:21:00 clonidine 0.1 mg 0.3 mg, 3 tab, Route: PO, Drug 12/04/201102/2012 Completed oral tablet form: TAB, ONCE, Start date : 12/04/11 2:19:00, Stop date: 12/04/11 2:19:00 Afrin 0.025% nasal Route: NASAL, ONCE, Start date: 12/04/2011 12/04/2011 Deleted solution 12/04/11 2:18:00, Stop date : 12/04/11 2:18:00 Vital Signs Most recent to oldest [Reference Range]: 1 Height 170.18 cm (12/04/2011 02:00:00) Weight 77.273 kg (12/04/2011 02:00:00)
--- OUTSIDE RECORDS SUMMARY | 2019-12-11 11:38 | XMS REPORT | Summary of Care ---
Author Author [facility] Organization [facility] Address Unknown Phone Unavailable Encounter HQ Machelle(FIN) [id number] Date(s): 12/17/18 - 12/17/18 [facility] [address] [address]- Discharge Disposition: Home or Self Care Attending Physician: Mila Houston MD Vital Signs Most recent to 1 oldest [Reference Range]: Height 170.18 cm (12/17/18 7:32 AM) Temperature Oral 98.1 DegF [96.4-99.1 DegF] (12/17/18 7:32 AM) Blood Pressure 152/83 mmHg [90-140/60-90 mmHg] *HI* (12/17/18 7:32 AM) Respiratory Rate 16 BRMIN [14-20 BRMIN] (12/17/18 7:32 AM) Peripheral Pulse 67 bpm Rate [60-100 bpm] (12/17/18 7:32 AM) Weight 75.114 kg (12/17/18 7:32 AM) Body Mass Index 25.94 m2 (12/17/18 7:32 AM) Problem List Condition Effective Dates Status [...] tolerated well 2Result Comment: fluzone (>3 yrs.) [[id number]]. Migrated from OBS ; Data migrated from [...]
--- OUTSIDE RECORDS SUMMARY | 2019-12-11 11:38 | XMS REPORT | Summary of Care ---
Author Author [facility] Organization [facility] Address Unknown Phone Unavailable Encounter LEELEE Carty(FIN) [id number] Date(s): 09/11/18 - 09/11/18 [facility] [address] [facility], [address] [place] [address]- [phone] Discharge Disposition: Home or Self Care Attending Physician: Mila Houston MD Vital Signs Most recent to 1 oldest [Reference Range]: Height 170.18 cm (09/11/18 7:43 AM) Blood Pressure 158/82 mmHg [90-140/60-90 mmHg] *HI* (09/11/18 7:43 AM) Peripheral Pulse 79 bpm Rate [60-100 bpm] (09/11/18 7:43 AM) Weight 76.364 kg (09/11/18 7:43 AM) Body Mass Index 26.37 m2 (09/11/18 7:43 AM) Problem List Condition Effective Dates Status [...] on 02/24/15. Originally documented as PENICILLIN. Medications amLODIPine-olmesartan 10 mg-40 mg oral tablet 1 tab, PO, Daily, # 90 tab, 1 Refill(s), Pharmacy: [facility] 8244 Start Date: 09/11/18 Stop Date: 03/10/19 Status: Ordered Results No data available for [...] tolerated well 2Result Comment: fluzone (>3 yrs.) [[id number]]. Migrated from OBS ; Data migrated from [...] Smoking C essation Counseling No entered on: 09/11/18 Assessment and Plan No data available for this section
--- OUTSIDE RECORDS SUMMARY | 2019-12-11 11:38 | XMS REPORT | Summary of Care ---
Author Author [facility] Organization [facility] Address Unknown Phone Unavailable Encounter HQ Machelle(FIN) [id number] Date(s): 08/01/17 - 08/01/17 [facility] [address] [facility], [address] [place], [place] [address]- [phone] Discharge Disposition: Home or Self Care Attending Physician: Elayne Sidhu DO Vital Signs Most recent to 1 oldest [Reference Range]: Height 170.18 cm (08/01/17 3:59 PM) Temperature Oral 98.6 DegF [96.4-99.1 DegF] (08/01/17 3:59 PM) Blood Pressure 137/66 mmHg [90-140/60-90 mmHg] (08/01/17 3:59 PM) Respiratory Rate 14 BRMIN [14-20 BRMIN] (08/01/17 3:59 PM) Peripheral Pulse 95 bpm Rate [60-100 bpm] (08/01/17 3:59 PM) Weight 76.364 kg (08/01/17 3:59 PM) Body Mass Index 26.37 m2 (08/01/17 3:59 PM) Problem List Condition Effective Dates Status Health Status Informan t Abnormal EKG Active finding(Confirmed)1 Acid Active reflux(Confirmed) Anxiety(Confirmed) Active Back pain(Confirmed) Active Benign essential Active HTN(Confirmed) Chest Active pain(Confirmed) Chronic diastolic 01/12/15 Active heart failure(Confirmed)2 B12 Active deficiency(Confirmed ) Low serum vitamin Active D(Confirmed) 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 Allergies, [...] Give n 1Result Comment: fluzone (>3 yrs.) [[id number]]. Migrated from OBS ; Data migrated from [...]
--- OUTSIDE RECORDS SUMMARY | 2019-12-11 11:38 | XMS REPORT | Summary of Care ---
Author Author [facility] Primary Care [facility] Primary [facility] [place] Address Unknown Phone Unavailable Care Team Providers Care Broke Beater Name Role Phone Mila Houston PCP [phone] Encounter HQ Xavier_bebo(FIN) [id number] Date(s): 07/20/19 - 07/20/19 [facility] Primary Care [address] [place] [address] [phone] Discharge Disposition: Home or Self Care Attending Physician: Mila Houston MD Vital Signs Most recent to 1 oldest [Reference Range]: Height 170.18 cm (07/20/19 9:56 AM) Temperature Oral 98.1 DegF [96.4-99.1 DegF] (07/20/19 9:56 AM) Blood Pressure 142/66 mmHg [90-140/60-90 mmHg] *HI* (07/20/19 9:56 AM) Peripheral Pulse 58 bpm Rate [60-100 bpm] *LOW* (07/20/19 9:56 AM) Weight 75.818 kg (07/20/19 9:56 AM) Body Mass Index 26.18 m2 (07/20/19 9:56 AM) Problem List Condition Effective Dates Status [...] Knee pain7 09/21/13 Active Hyperlipidemia, Active mixed(Confirmed) Moderate major Active depression(Confirmed ) Annual physical Active exam(Confirmed) Prediabetes(Confirme Active d) [...] on 02/24/15. Originally documented as PENICILLIN. Medications amLODIPine 10 mg oral tablet 10 mg = 1 tab, PO, Daily, # 90 tab, 1 Refill(s), Pharmacy: [facility] 8 244 Start Date: 07/20/19 Stop Date: 01/16/20 Status: Ordered carvedilol 12.5 mg oral tablet = 1 tab, PO, BID, # 180 tab, 1 Refill(s), Pharmacy: [facility] 8244 Start Date: 07/20/19 Stop Date: 01/16/20 Status: Ordered citalopram 20 mg oral tablet 20 mg = 1 tab, PO, Daily, # 90 tab, 1 Refill(s), Pharmacy: [facility] [address] 244 Start Date: 07/20/19 Stop Date: 01/16/20 Status: Ordered simvastatin 5 mg oral tablet 1 tab, PO, Bedtime, # 90 tab, 1 Refill(s), Pharmacy: [facility] 8244 Start Date: 07/20/19 Stop Date: 01/16/20 Status: Ordered valsartan 320 mg oral tablet 320 mg = 1 tab, PO, Daily, # 90 tab, 1 Refill(s), [facility] 8244 Start Date: 07/20/19 Stop Date: 01/16/20 Status: Ordered Results No data available for [...] tolerated well 2Result Comment: fluzone (>3 yrs.) [[id number]]. Migrated from OBS ; Data migrated from [employer] on 08/30/2015. 3Result Comment: done. Migrated from OBS ; Data migrated from [employer] on 08/30/2015. Procedures Procedure Date Related Diagnosis Body Site Status Procedure on elbow joint1 04/2015 Completed Operation 04/13/11 Completed Tricuspid valve operation 05/13/10 Completed Injection into joint Completed Open heart surgery Completed 1Incision and drainage Social History Social History Type Response Alcohol Current, Type Beer. Freque ncy: 1-2 times per month. Smoking Status Never smoker; Exposure to T obacco Smoke None; Cigarette Smoking Last 365 Days No; Reg Smoking Cessation Counseli ng No entered on: 07/20/19 Assessment and Plan No data available for this section
--- OUTSIDE RECORDS SUMMARY | 2019-12-11 11:38 | XMS REPORT | CCD ---
Author Author Auto Generated, MEHREEN CRISTINA [facility] Address Unknown Phone Unavailable Care Team Providers Care Service Coordinator Elderly Facility Name Role Phone Med Abraham CP Allergies, Adverse Reactions, Alerts Substance Reaction Status penicillins Active
--- OUTSIDE RECORDS SUMMARY | 2019-12-11 11:38 | XMS REPORT | Summary of Care ---
Author Author [facility] Primary Care [facility] Organization [facility] Address Unknown Phone Unavailable Encounter LEELEE Carty(FIN) [id number] Date(s): 12/03/17 - 12/03/17 [facility] [address] [facility], [address] [place] [address]- [phone] Discharge Disposition: Home or Self Care Attending Physician: Mila Houston MD Vital Signs Most recent to 1 oldest [Reference Range]: Height 170.18 cm (12/03/17 9:29 AM) Temperature Oral 98.0 DegF [96.4-99.1 DegF] (12/03/17 9:29 AM) Blood Pressure 153/80 mmHg [90-140/60-90 mmHg] *HI* (12/03/17 9:29 AM) Peripheral Pulse 67 bpm Rate [60-100 bpm] (12/03/17 9:29 AM) Weight 76.364 kg (12/03/17 9:29 AM) Body Mass Index 26.37 m2 (12/03/17 9:29 AM) Problem List Condition Effective Dates Status Health Status Informan t Abnormal EKG Active finding(Confirmed)1 Acid Active reflux(Confirmed) Anemia(Confirmed) Active Anxiety(Confirmed) Active Back pain(Confirmed) Active Benign essential [...] See's Dr. Leslie Grant 2Data migrated from [employer] on 02/02/15. 3Data migrated from [employer] [...] on 02/24/15. Originally documented as PENICILLIN. Medications emollients, topical gel 1 appl, TOP, QID, # 15 gm, 0 Refill(s), Pharmacy: [facility] 8244 Start Date: 12/03/17 Stop Date: 12/10/17 Status: Ordered fluocinonide topical 0.05% gel 1 appl, TOP, QID, X 7 day, # 15 gm, 0 Refill(s), Pharmacy: [facility] 8 244 Start Date: 12/03/17 Stop Date: 12/10/17 Status: Ordered Results No data available for this section Immunizations Given and Recorded Vaccine Date Status Refusal Reason influenza virus vaccine, inactivated 03/31/17 R ecorded influenza virus vaccine, inactivated 05/05/15 G iven influenza virus vaccine, inactivated1 04/24/13 Given pneumococcal 23-valent vaccine 05/05/15 Given diphtheria/pertussis, acel/tetanus adult 05/04/15 Given Hx influenza vaccine-unspecified2 04/24/13 Give n 1Result Comment: fluzone (>3 yrs.) [[id number]]. Migrated from OBS ; Data migrated from [...] Smoking C essation Counseling No entered on: 12/03/17 Assessment and Plan No data available for this section
--- OUTSIDE RECORDS SUMMARY | 2019-12-11 11:38 | XMS REPORT | Summary of Care ---
Author Author [facility] Primary Care [facility] Primary Care [place] Address Unknown Phone Unavailable Care Team Providers Care Boring Machine Set Up Operator Name Role Phone Mila Houston PCP Encounter HQ Annier_bebo(FIN) [id number] Date(s): 07/13/19 - 07/14/19 [facility] Primary Care [place] [address] [facility] [address] [place] [address]- [phone] Vital Signs No data available for this [...] Daily, # 30 tab, 0 Refill(s), Pharmacy: [facility] 8 244 Start Date: 07/13/19 Status: Ordered valsartan 320 mg oral tablet 320 mg = 1 tab, PO, Daily, # 30 tab, 0 Refill(s), Pharmacy: [facility] 8244 Start Date: 07/13/19 Status: Ordered Results No data available for [...] tolerated well 2Result Comment: fluzone (>3 yrs.) [[id number]]. Migrated from OBS ; Data migrated from [employer] on 08/30/2015. 3Result Comment: done. Migrated from OBS ; Data migrated from [employer] on 08/30/2015. Procedures Procedure Date Related Diagnosis [...]
--- OUTSIDE RECORDS SUMMARY | 2019-12-11 11:38 | XMS REPORT | Summary of Care ---
Author Author [facility] Primary [facility] Organization [facility] Address Unknown Phone Unavailable Encounter LEELEE Carty(FIN) [id number] Date(s): 01/08/18 - 01/08/18 [facility] [address] [facility], [address] [place] [address]- [phone] Discharge Disposition: Home or Self Care Attending Physician: Mila Houston MD Vital Signs Most recent to 1 oldest [Reference Range]: Height 170.18 cm (01/08/18 12:19 PM) Temperature Oral 98.5 DegF [96.4-99.1 DegF] (01/08/18 12:19 PM) Blood Pressure 163/78 mmHg [90-140/60-90 mmHg] *HI* (01/08/18 12:19 PM) Peripheral Pulse 83 bpm Rate [60-100 bpm] (01/08/18 12:19 PM) Weight 75 kg (01/08/18 12:19 PM) Body Mass Index 25.9 m2 (01/08/18 12:19 PM) Problem List Condition Effective Dates Status [...] 02/24/15. Originally documented as PENICILLIN. Medications amLODIPine 5 mg oral tablet 5 mg = 1 tab, PO, Daily, # 90 tab, 1 Refill(s), Pharmacy: [facility] [address] 44 Start Date: 01/08/18 Stop Date: 07/07/18 Status: Ordered simvastatin 5 mg oral tablet 5 mg = 1 tab, PO, Bedtime, # 90 tab, 1 Refill(s), Pharmacy: [facility] 8244 Start Date: 01/08/18 Stop Date: 07/07/18 Status: Ordered Results No data available for this section Immunizations Given and Recorded Vaccine Date Status Refusal Reason influenza virus vaccine, inactivated 03/31/17 R ecorded influenza virus vaccine, inactivated 05/05/15 G iven influenza virus vaccine, inactivated1 04/24/13 Given pneumococcal 23-valent vaccine 05/05/15 Given diphtheria/pertussis, acel/tetanus adult 05/04/15 Given Hx influenza vaccine-unspecified2 04/24/13 Give n 1Result Comment: fluzone (>3 yrs.) [[id number]]. Migrated from OBS ; Data migrated from [...]
--- OUTSIDE RECORDS SUMMARY | 2019-12-11 11:38 | XMS REPORT | Summary of Care ---
Author Author [facility] Primary [facility] Organization [facility] Address Unknown Phone Unavailable Encounter LEELEE Carty(FIN) [id number] Date(s): 09/18/17 - 09/18/17 [facility] [address] [facility], [address] [place] [address]- [phone] Discharge Disposition: Home or Self Care Attending Physician: Mila Houston MD Vital Signs Most recent to 1 oldest [Reference Range]: Height 170.18 cm (09/18/17 8:19 AM) Temperature Oral 98.4 DegF [96.4-99.1 DegF] (09/18/17 8:19 AM) Blood Pressure 147/66 mmHg [90-140/60-90 mmHg] *HI* (09/18/17 8:19 AM) Respiratory Rate 14 BRMIN [14-20 BRMIN] (09/18/17 8:19 AM) Peripheral Pulse 69 bpm Rate [60-100 bpm] (09/18/17 8:19 AM) Weight 77.443 kg (09/18/17 8:19 AM) Body Mass Index 26.74 m2 (09/18/17 8:19 AM) Problem List Condition Effective Dates Status [...] Give n 1Result Comment: fluzone (>3 yrs.) [[id number]]. Migrated from OBS ; Data migrated from [...]
--- OUTSIDE RECORDS SUMMARY | 2019-12-11 11:38 | XMS REPORT | Summary of Care ---
Author Organization Unknown Address Unknown Phone Unavailable Encounter LEELEE Carty(CEE) [id number] Date(s): 01/30/14 - 01/30/14 [facility] [address] [place], [place] [id number] [place] [address] Discharge Diagnosis: Effusion of right knee Discharge Disposition: Home Physician Attending: Nette Mejía MD Reason for Visit LEG PAIN Vital Signs Most recent to 1 2 oldest [Reference Range]: Height 170.18 cm (01/30/14 12:39 PM) Temperature Oral 99.0 DegF 99.1 DegF [96.4-99.1 DegF] (01/30/14 5:53 PM) (01/30/14 12:39 PM) Systolic Blood 128 mmHg 148 mmHg Pressure [90-140 (01/30/14 5:53 PM) *HI* mmHg] (01/30/14 12:39 PM) Diastolic Blood 68 mmHg 76 mmHg Pressure [60-90 (01/30/14 5:53 PM) (01/30/14 12:39 PM) mmHg] Respiratory Rate 20 BRMIN 20 BRMIN [14-20 BRMIN] (01/30/14 5:53 PM) (01/30/14 12:39 PM) Peripheral Pulse 76 bpm 102 bpm Rate [60-100 bpm] (01/30/14 5:53 PM) *HI* (01/30/14 12:39 PM) Weight 77.273 kg (01/30/14 12:39 PM) Body Mass Index 26.68 m2 (01/30/14 12:39 PM) Problem List Condition Effective Dates Status Health Status Informan t Abnormal EKG Active finding(Confirmed)1 Acid Active reflux(Confirmed) Anxiety(Confirmed) Active Back pain(Confirmed) Active Hypertension(Confirm Active ed) 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 See's Dr[address] J. Benrey Allergies, Adverse Reactions, Alerts Substance Reaction Severity Status penicillins Active Medications No data available for this section Results ELECTROLYTES Most recent to 1 oldest [Reference Range]: Sodium Lvl [135-145 136 mEq/L mEq/L] (01/30/14 3:00 PM) Potassium Lvl 4.4 mEq/L [3.5-5.1 mEq/L] (01/30/14 3:00 PM) Chloride Lvl [95-109 100 mEq/L mEq/L] (01/30/14 3:00 PM) CO2 [24-32 mEq/L] 29 mEq/L (01/30/14 3:00 PM) AGAP [10.0-20.0 11.4 mEq/L mEq/L] (01/30/14 3:00 PM) CHEM PANEL Most recent to 1 oldest [Reference Range]: Creatinine Lvl 1.2 mg/dL [0.5-1.4 mg/dL] (01/30/14 3:00 PM) eGFR 74 mL/min/1.73m2 1 *NA* (01/30/14 3:00 PM) BUN [7-22 mg/dL] 15 mg/dL (01/30/14 3:00 PM) Glucose Lvl [70-99 97 mg/dL 2 mg/dL] (01/30/14 3:00 PM) Calcium Lvl 9.5 mg/dL [8.5-10.5 mg/dL] (01/30/14 3:00 PM) 1Result Comment: The eGFR is calculated using the [...] from the National Kidney Disease Education Program ( NKDEP) which additionally recommends that when the eGFR is used in patients with extremes of body mass index for purposes of drug dosing, the eGFR should be mul tiplied by the estimated BMI. 2Interpretive Data: Adult reference range values reflect the clinical guidelines of the [place] [employer]. HEMATOLOGY Most recent to 1 oldest [Reference Range]: WBC [3.7-10.4 K/CMM] 7.5 K/CMM (01/30/14 3:00 PM) RBC [4.70-6.10 5.06 M/CMM M/CMM] (01/30/14 3:00 PM) Hgb [14.0-18.0 g/dL] 14.5 g/dL (01/30/14 3:00 PM) Hct [42.0-54.0 %] 43.2 % (01/30/14 3:00 PM) MCV [80.0-94.0 fL] 85.3 fL (01/30/14 3:00 PM) MCH [27.0-31.0 pg] 28.7 pg (01/30/14 3:00 PM) MCHC [32.0-36.0 33.7 g/dL g/dL] (01/30/14 3:00 PM) RDW [11.5-14.5 %] 13.5 % (01/30/14 3:00 PM) Platelet [133-450 289 K/CMM K/CMM] (01/30/14 3:00 PM) MPV [7.4-10.4 fL] 8.7 fL (01/30/14 3:00 PM) Segs [45.0-75.0 %] 65.0 % (01/30/14 3:00 PM) Lymphocytes 20.7 % [20.0-40.0 %] (01/30/14 3:00 PM) Monocytes [2.0-12.0 8.9 % %] (01/30/14 3:00 PM) Eosinophils [0.0-4.0 4.9 % %] *HI* (01/30/14 3:00 PM) Basophils [0.0-1.0 0.5 % %] (01/30/14 3:00 PM) Segs-Bands # 4.9 K/CMM [1.5-8.1 K/CMM] (01/30/14 3:00 PM) Lymphocytes # 1.6 K/CMM [1.0-5.5 K/CMM] (01/30/14 3:00 PM) Monocytes # [0.0-0.8 0.7 K/CMM K/CMM] (01/30/14 3:00 PM) Eosinophils # 0.4 K/CMM [0.0-0.5 K/CMM] (01/30/14 3:00 PM) PT [12.0-14.7 14.0 seconds seconds] (01/30/14 3:00 PM) INR [0.85-1.17] 1.09 3 (01/30/14 3:00 PM) 3Interpretive Data: RECOMMENDED RANGES FOR PROTIME INR: 2.0-3.0 for most medical and surgical thromboembolic states. 2.5-3.5 for artificial heart valves and recurrent embolism. INR SHOULD BE USED ONLY FOR PATIENTS ON STABLE ANTICOAGULANT THERAPY. Medications Administered During Your Visit No data [...]
--- OUTSIDE RECORDS SUMMARY | 2019-12-11 11:38 | XMS REPORT | Summary of Care ---
Author Author [facility] Primary [facility] Organization [facility] Address Unknown Phone Unavailable Encounter HQ Machelle(FIN) [id number] Date(s): 11/14/17 - 11/14/17 [facility] [address], [address] [place] [address]- [phone] Discharge Disposition: Home or Self Care Attending Physician: Mila Houston MD Vital Signs Most recent to 1 oldest [Reference Range]: Height 170.18 cm (11/14/17 11:10 AM) Temperature Oral 99.6 DegF [96.4-99.1 DegF] *HI* (11/14/17 11:10 AM) Blood Pressure 151/71 mmHg [90-140/60-90 mmHg] *HI* (11/14/17 11:10 AM) Respiratory Rate 14 BRMIN [14-20 BRMIN] (11/14/17 11:10 AM) Peripheral Pulse 117 bpm Rate [60-100 bpm] *HI* (11/14/17 11:10 AM) Weight 75 kg (11/14/17 11:10 AM) Body Mass Index 25.9 m2 (11/14/17 11:10 AM) Problem List Condition Effective Dates Status Health Status Informan t Abnormal EKG Active finding(Confirmed)1 Acid Active reflux(Confirmed) Anemia(Confirmed) Active Anxiety(Confirmed) Active Back pain(Confirmed) Active Benign essential Active HTN(Confirmed) Bleeding Active nose(Confirmed) Chest Active pain(Confirmed) Chronic diastolic 01/12/15 Active heart failure(Confirmed)2 B12 Active deficiency(Confirmed ) Leg cramp(Confirmed) Active Low serum vitamin Active D(Confirmed) 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 Migrated from OBS ; Data migrated from [...] Smoking C essation Counseling No entered on: 11/14/17 Assessment and Plan No data available for this section
--- OUTSIDE RECORDS SUMMARY | 2019-12-11 11:38 | XMS REPORT | Summary of Care ---
Author Author [facility] Organization [facility] Address Unknown Phone Unavailable Encounter HQ Xavier_bebo(FIN) [id number] Date(s): 07/05/17 - 07/05/17 [facility] [address], [address] [place] [address]- [phone] Discharge Disposition: Home or Self Care Attending Physician: Mila Houston MD Vital Signs Most recent to 1 oldest [Reference Range]: Height 170.18 cm (07/05/17 10:24 AM) Temperature Oral 98.7 DegF [96.4-99.1 DegF] (07/05/17 10:24 AM) Blood Pressure 147/82 mmHg [90-140/60-90 mmHg] *HI* (07/05/17 10:24 AM) Respiratory Rate 14 BRMIN [14-20 BRMIN] (07/05/17 10:24 AM) Peripheral Pulse 80 bpm Rate [60-100 bpm] (07/05/17 10:24 AM) Weight 76.932 kg (07/05/17 10:24 AM) Body Mass Index 26.56 m2 (07/05/17 10:24 AM) Problem List Condition Effective Dates Status [...] 09/21/13 Resolved Hypertensive Active disorder(Confirmed)8 Impotence9 Active Qtdlrqqt59 Active Knee pain11 09/21/13 Active Hyperlipidemia, Active mixed(Confirmed) Annual physical Active exam(Confirmed) Thyroid disorder Active screen(Confirmed) Shoulder joint Active pain12 Sore Active throat(Confirmed) Spinal vhlldyjh19 Active Viral upper Active respiratory illness(Confirmed) 1Patient has history of Trisuspid valve replacement [...] on 02/24/15. Originally documented as PENICILLIN. Medications clarithromycin 500 mg oral tablet 500 mg = 1 tab, PO, Q12H, X 7 day, # 14 tab, 0 Refill(s), [id number] Start Date: 07/05/17 Stop Date: 07/12/17 Status: Ordered ibuprofen 800 mg oral tablet 800 mg = 1 tab, PO, Q8H, PRN Pain, Take with food, X 10 day, # 30 tab, 0 Refill( s), Pharmacy: [facility] [id number] Start Date: 07/05/17 Stop Date: 07/15/17 Status: Ordered omeprazole 40 mg oral delayed release capsule 40 mg = 1 cap, PO, Daily, # 60 cap, 0 Refill(s), [id number] Start Date: 07/05/17 Stop Date: 09/03/17 Status: Ordered Results No data available for this section Immunizations Given and Recorded Vaccine Date Status Refusal Reason influenza virus vaccine, inactivated 03/31/17 R ecorded influenza virus vaccine, inactivated 05/05/15 G iven influenza virus vaccine, inactivated1 04/24/13 Given pneumococcal 23-valent vaccine 05/05/15 Given diphtheria/pertussis, acel/tetanus adult 05/04/15 Given Hx influenza vaccine-unspecified2 04/24/13 Give n 1Result Comment: fluzone (>3 yrs.) [[id number]]. Migrated from OBS ; Data migrated from [employer] on 08/30/2015. 2Result Comment: done. Migrated from OBS ; Data migrated from [employer] on 08/30/2015. Procedures Procedure Date Related Diagnosis [...]
--- OUTSIDE RECORDS SUMMARY | 2019-12-11 11:38 | XMS REPORT | Summary of Care ---
Author Organization Unknown Address Unknown Phone Unavailable Encounter HQ Xavier_bebo(FIN) [id number] Date(s): 03/30/14 - 04/28/14 [facility] [place] Discharge Disposition: Home Physician Attending: Corey Alanis [...]
--- OUTSIDE RECORDS SUMMARY | 2019-12-11 11:38 | XMS REPORT | Summary of Care ---
Author Author [facility] Organization [facility] Address Unknown Phone Unavailable Care Team Providers Care Casting Plug Assembler Name Role Phone Mila Houston PCP [phone] Encounter HQ Xavier_bebo(FIN) [id number] Date(s): 06/12/18 - 06/12/18 [facility] [address] [address]- [phone] Discharge Disposition: Home or Self Care Attending Physician: Mila Houston MD Vital Signs Most recent to 1 oldest [Reference Range]: Temperature Oral 98.0 DegF [96.4-99.1 DegF] (06/12/18 8:22 AM) Blood Pressure 163/76 mmHg [90-140/60-90 mmHg] *HI* (06/12/18 8:22 AM) Respiratory Rate 16 BRMIN [14-20 BRMIN] (06/12/18 8:22 AM) Peripheral Pulse 74 bpm Rate [60-100 bpm] (06/12/18 8:22 AM) Weight 76.364 kg (06/12/18 8:22 AM) Problem List Condition Effective Dates Status [...] Daily, # 90 tab, 1 Refill(s), Pharmacy: [id number] Start Date: 06/12/18 Stop Date: 06/25/18 Status: Discontinued Results No data available for [...] tolerated well 2Result Comment: fluzone (>3 yrs.) [[id number]]. Migrated from OBS ; Data migrated from [...]
--- OUTSIDE RECORDS SUMMARY | 2019-12-11 11:38 | XMS REPORT | Summary of Care ---
Author Author [facility] Primary [facility] Organization [facility] Address Unknown Phone Unavailable Encounter HQ Willintr_aligabbie(FIN) [id number] Date(s): 01/13/18 - 01/14/18 [facility] [address], [address] [place] [address]- [phone] Vital Signs No data available for this [...] Give n 1Result Comment: fluzone (>3 yrs.) [[id number]]. Migrated from OBS ; Data migrated from [employer] on 08/30/2015. 2Result Comment: done. Migrated from OBS ; Data migrated from [employer] on 08/30/2015. Procedures Procedure Date Related Diagnosis [...]
--- OUTSIDE RECORDS SUMMARY | 2019-12-11 11:38 | XMS REPORT | Summary of Care ---
Author Author [facility] Primary [facility] Organization [facility] Address Unknown Phone Unavailable Encounter HQ Willintr_aligabbie(FIN) [id number] Date(s): 01/24/18 - 01/25/18 [facility] [address], [address] [place] [address]- [phone] Vital Signs No data available for this [...] 02/24/15. Originally documented as PENICILLIN. Medications furosemide 40 mg oral tablet See Instructions, # 90 tab, Refill(s) 1, TAKE ONE TABLET BY MOUTH ONCE DAILY, Ph armacy: [id number] Start Date: 01/24/18 Status: Ordered Results No data available for this section Immunizations Given and Recorded Vaccine Date Status Refusal Reason influenza virus vaccine, inactivated 03/31/17 R ecorded influenza virus vaccine, inactivated 05/05/15 G iven influenza virus vaccine, inactivated1 04/24/13 Given pneumococcal 23-valent vaccine 05/05/15 Given diphtheria/pertussis, acel/tetanus adult 05/04/15 Given Hx influenza vaccine-unspecified2 04/24/13 Give n 1Result Comment: fluzone (>3 yrs.) [[id number]]. Migrated from OBS ; Data migrated from [employer] on 08/30/2015. 2Result Comment: done. Migrated from OBS ; Data migrated from [employer] on 08/30/2015. Procedures Procedure Date Related Diagnosis [...]
--- OUTSIDE RECORDS SUMMARY | 2019-12-11 11:38 | XMS REPORT | Summary of Care ---
Author Organization Unknown Address Unknown Phone Unavailable Encounter HQ Xavier_bebo(FIN) [id number] Date(s): 02/25/14 - 03/26/14 [facility] Discharge Disposition: Home Physician Attending: Corey Alanis [...]
--- OUTSIDE RECORDS SUMMARY | 2019-12-11 11:38 | XMS REPORT | Summary of Care ---
Author Organization Unknown Address Unknown Phone Unavailable Encounter HQ Machelle(CEE) [id number] Date(s): 01/22/14 - 01/22/14 [facility] [address] [place], [place] [address] [place] [address] Discharge Disposition: Home Physician Attending: Corey Alanis MD Physician_Referring: Corey Alanis MD Reason for Visit UNK Vital Signs 1 2 3 Most recent to oldest [Reference Range]: 170.18 cm (01/20/14 1:49 PM) Height 120 mmHg (01/22/14 6:45 PM) 123 mmHg (01/22/14 6:30 PM) 122 mmHg (01/22/14 6:15 PM) Systolic Blood Pressure [90-140 mmHg] 49 mmHg *LOW* (01/22/14 6:45 PM) 49 mmHg *LOW* (01/22/14 6:30 PM) 58 mmHg *LOW* (01/22/14 6:15 PM) Diastolic Blood Pressure [60-90 mmHg] 10 BRMIN *LOW* (01/22/14 5:45 PM) 12 BRMIN *LOW* (01/22/14 5:40 PM) 11 BRMIN *LOW* (01/22/14 5:25 PM) Respiratory Rate [14-20 BRMIN] 61 bpm (01/22/14 5:07 PM) 61 bpm (01/22/14 12:20 PM) Peripheral Pulse Rate [60-100 bpm] 77.273 kg (01/20/14 1:49 PM) Weight 26.68 m2 (01/20/14 1:49 PM) Body Mass Index Problem List Condition Effective Dates Status Health Status Informan t Abnormal EKG Active finding(Confirmed)1 Acid Active reflux(Confirmed) Anxiety(Confirmed) Active Back pain(Confirmed) Active Hypertension(Confirm Active ed) 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 See's [address] Leslie Grant Allergies, Adverse Reactions, Alerts Substance Reaction Severity Status penicillins Active Medications acetaminophen 1,000 mg, 100 mL, Route: IVPB, Drug form: INJ, ONCE, Dosing Weight 77.273, kg, P RN Pain Score 1-3, Start date: 01/22/14 17:04:00, Duration: 1 doses or times, St op date: Limited # of times Notes: Infuse over 15 minutes Do not exceed 4gm/day of acetaminophen Start Date: 01/22/14 Stop Date: 01/23/14 Status: Discontinued Aspirin Low Dose 81 mg oral tablet = 1 tab, PO, Daily, 0 Refill(s) Start Date: 01/20/14 Status: Ordered ceFAZolin 2 gm, Route: IVPB, ONCE, Dosing Weight 77.273, kg, Start date: 01/22/14 14:33:00 , Duration: 1 doses or times, Stop date: 01/22/14 14:33:00 Start Date: 01/22/14 Stop Date: 01/22/14 Status: Completed diphenhydrAMINE 12.5 mg, 0.25 mL, Route: IVP, Drug form: INJ, Q6H, Dosing Weight 77.273, kg, PRN Itching, Start date: 01/22/14 17:04:00, Duration: 30 day, Stop date: 02/21/14 1 7:03:00 Notes: (Same as: Benadryl) Start Date: 01/22/14 Stop Date: 01/23/14 Status: Discontinued fentaNYL 50 microgram, 1 mL, Route: IVP, Drug form: INJ, Q5Min, Dosing Weight 77.273, kg, PRN Pain Score 7-10, Start date: 01/22/14 17:04:00, Duration: 2 doses or times, Stop date: Limited # of times Notes: (Same as: Sublimaze) Preservative free. Start Date: 01/22/14 Stop Date: 01/23/14 Status: Discontinued fentaNYL 25 microgram, 0.5 mL, Route: IVP, Drug form: INJ, Q5Min, Dosing Weight 77.273, k g, PRN Pain Score 4-6, Start date: 01/22/14 17:04:00, Duration: 4 doses or times , Stop date: Limited # of times Notes: (Same as: Sublimaze) Preservative free. Start Date: 01/22/14 Stop Date: 01/23/14 Status: Discontinued flumazenil 0.2 mg, 2 mL, Route: IVP, Drug form: INJ, PRN, Dosing Weight 77.273, kg, PRN Deng zodiazepine Reversal, Initial dose, Start date: 01/22/14 17:04:00, Duration: 30 day, Stop date: 02/21/14 17:03:00 Notes: (Same as: Romazicon) Start Date: 01/22/14 Stop Date: 01/23/14 Status: Discontinued furosemide 40 mg oral tablet 40 mg = 1 tab, PO, Daily, # 30 tab, 0 Refill(s) Start Date: 01/20/14 Status: Ordered hydromorphone 0.5 mg, 0.5 mL, Route: IVP, Drug form: INJ, Q5Min, Dosing Weight 77.273, kg, PRN Pain Score 7-10, Start date: 01/22/14 17:04:00, Duration: 4 doses or times, Stop date: Limited # of times Start Date: 01/22/14 Stop Date: 01/23/14 Status: Discontinued ketorolac 30 mg, 1 mL, Route: IVP, Drug form: INJ, ONCE, Dosing Weight 77.273, kg, Start d ate: 01/22/14 17:04:00, Duration: 1 doses or times, Stop date: 01/22/14 17:04:00 Notes: (Same as:Toradol) IV bolus must be given >15 seconds. Give IM administration slowly and deeply into the muscle. Not for use > 4 days Start Date: 01/22/14 Stop Date: 01/22/14 Status: Ordered Lactated Ringers Injection IV 1,000 mL 1,000 mL, Rate: 125 ml/hr, Infuse over: 8 hr, Route: IV, Dosing Weight 77.273 kg , Total Volume: 1,000, Start date: 01/22/14 17:04:00, Duration: 30 day, Stop manjit e: 02/21/14 17:03:00 Start Date: 01/22/14 Stop Date: 01/23/14 Status: Discontinued Lactated Ringers Injection IV 1000 mL 1,000 mL, Rate: 25 ml/hr, Infuse over: 40 hr, Route: IV, Dosing Weight 77.273 kg , Total Volume: 1,000, Start date: 01/22/14 12:38:00, Duration: 30 day, Stop manjit e: 02/21/14 12:37:00 Start Date: 01/22/14 Stop Date: 01/22/14 Status: Discontinued losartan 50 mg oral tablet 50 mg = 1 tab, PO, Daily, # 30 tab, 0 Refill(s) Start Date: 01/20/14 Status: Ordered meperidine 12.5 mg, 0.25 mL, Route: IVP, Drug form: INJ, Q30Min, Dosing Weight 77.273, kg, PRN Other -See Comment, For shivering, Start date: 01/22/14 17:04:00, Duration: 2 doses or times, Stop date: Limited # of times Notes: (Same As: Demerol) Start Date: 01/22/14 Stop Date: 01/23/14 Status: Discontinued minoxidil 2.5 mg oral tablet 2.5 mg = 1 tab, PO, BID, # 120 tab, 0 Refill(s) Start Date: 01/20/14 Status: Ordered morphine Sulfate 4 mg, 2 mL, Route: IVP, Drug form: INJ, Q5Min, Dosing Weight 77.273, kg, PRN Neeraj n Score 7-10, Start date: 01/22/14 17:04:00, Duration: 3 doses or times, Stop da te: Limited # of times Notes: (Same as:MORPhine Sulfate) Start Date: 01/22/14 Stop Date: 01/23/14 Status: Discontinued morphine Sulfate 2 mg, 1 mL, Route: IVP, Drug form: INJ, Q5Min, Dosing Weight 77.273, kg, PRN Neeraj n Score 4-6, Start date: 01/22/14 17:04:00, Duration: 5 doses or times, Stop manjit e: Limited # of times Notes: (Same as:MORPhine Sulfate) Start Date: 01/22/14 Stop Date: 01/23/14 Status: Discontinued morphine Sulfate 2 mg, 1 mL, Route: IVP, Drug form: INJ, Q3H, Dosing Weight 77.273, kg, PRN Pain Score 1-3, Start date: 01/22/14 17:08:00, Duration: 30 day, Stop date: 02/21/14 17:07:00 Notes: (Same as:MORPhine Sulfate) Start Date: 01/22/14 Stop Date: 01/23/14 Status: Discontinued naloxone 0.04 mg, 0.1 mL, Route: IVP, Drug form: INJ, Q2MIN, Dosing Weight 77.273, kg, VA N Narcotic Reversal, Start date: 01/22/14 17:04:00, Duration: 8 doses or times, Stop date: Limited # of times Notes: Same as Narcan Start Date: 01/22/14 Stop Date: 01/23/14 Status: Discontinued ondansetron 4 mg, 2 mL, Route: IVP, Drug form: INJ, ONCE, Dosing Weight 77.273, kg, PRN Naus ea & Vomiting, Start date: 01/22/14 17:04:00 Notes: (Same as: Zofran) Start Date: 01/22/14 Stop Date: 01/23/14 Status: Discontinued oxyCODONE 10 mg, 2 tab, Route: PO, Drug form: TAB, Q4H, Dosing Weight 77.273, kg, PRN Pain Score 7-10, Start date: 01/22/14 17:04:00, Duration: 30 day, Stop date: 02/21/14 17:03:00 Notes: (Same as: OxyIR) Start Date: 01/22/14 Stop Date: 01/23/14 Status: Discontinued oxyCODONE 5 mg, 1 tab, Route: PO, Drug form: TAB, Q4H, Dosing Weight 77.273, kg, PRN Pain Score 4-6, Start date: 01/22/14 17:04:00, Duration: 30 day, Stop date: 02/21/14 17:03:00 Notes: (Same as: OxyIR) Start Date: 01/22/14 Stop Date: 01/23/14 Status: Discontinued OxyIR 5 mg, 1 tab, Route: NG, Drug form: TAB, Q4H, Dosing Weight 77.273, kg, PRN Pain Score 4-6, Start date: 01/22/14 17:04:00, Duration: 30 day, Stop date: 02/21/14 17:03:00 Notes: (Same as: OxyIR) Start Date: 01/22/14 Stop Date: 01/23/14 Status: Discontinued OxyIR 10 mg, 2 tab, Route: NG, Drug form: TAB, Q4H, Dosing Weight 77.273, kg, PRN Pain Score 7-10, Start date: 01/22/14 17:04:00, Duration: 30 day, Stop date: 02/21/14 17:03:00 Notes: (Same as: OxyIR) Start Date: 01/22/14 Stop Date: 01/23/14 Status: Discontinued Percocet 5/325 oral tablet 2 tab, Route: PO, Drug Form: TAB, Dosing Weight 77.273, kg, Q4H, PRN Pain Score 4-6, Start date: 01/22/14 17:08:00, Duration: 30 day, Stop date: 02/21/14 17:07: 00 Notes: Do not exceed 4gm/day of acetaminophen. (Same as: Percocet-5/325) Start Date: 01/22/14 Stop Date: 01/23/14 Status: Discontinued promethazine + Sodium Chloride 0.9% IV 50 mL 6.25 mg, 0.25 mL, Route: IVPB, ONCE, Dosing Weight 77.273, kg, PRN Nausea & Vomiting, Start date: 01/22/14 17:04:00 Notes: Do not give IV push. (Same as: Phenergan) Start Date: 01/22/14 Stop Date: 01/23/14 Status: Discontinued ropivacaine 0.2% in NS - site 1 400 mL Dosing: Per Nerve Block Dosing Order, Route: NERVE BLOCK, Start date: 01/22/14 1 8:07:00 400 mL, Drug Form: INJ, Dosing Weight 77.273, kg, Duration: 30 day, Stop date: 02/21/14 18:06:00 Notes: Final concentration: Ropivacaine 0.2% 400 ml Start Date: 01/22/14 Stop Date: 01/23/14 Status: Discontinued Zofran 4 mg, 2 mL, Route: IV, Drug form: INJ, Q8H, Dosing Weight 77.273, kg, PRN Nausea , Start date: 01/22/14 17:08:00, Duration: 30 day, Stop date: 02/21/14 17:07:00 Notes: (Same as: Patricia) Start Date: 01/22/14 Stop Date: 01/23/14 Status: Discontinued Results ELECTROLYTES Most recent to 1 oldest [Reference Range]: Sodium Lvl [135-145 143 mEq/L mEq/L] (01/20/14 2:25 PM) Potassium Lvl 4.5 mEq/L [3.5-5.1 mEq/L] (01/20/14 2:25 PM) Chloride Lvl [95-109 106 mEq/L mEq/L] (01/20/14 2:25 PM) CO2 [24-32 mEq/L] 30 mEq/L (01/20/14 2:25 PM) AGAP [10.0-20.0 11.5 mEq/L mEq/L] (01/20/14 2:25 PM) CHEM PANEL Most recent to 1 oldest [Reference Range]: Creatinine Lvl 1.0 mg/dL [0.5-1.4 mg/dL] (01/20/14 2:25 PM) eGFR 92 mL/min/1.73m2 1 *NA* (01/20/14 2:25 PM) BUN [7-22 mg/dL] 19 mg/dL (01/20/14 2:25 PM) Glucose Lvl [70-99 132 mg/dL 2 mg/dL] *HI* (01/20/14 2:25 PM) Calcium Lvl 8.9 mg/dL [8.5-10.5 mg/dL] (01/20/14 2:25 PM) 1Result Comment: The eGFR is calculated [...] values reflect the clinical guidelines of the [place] [employer]. Medications Administered During Your Visit No data available for this section Immunizations No data available for this section Procedures Procedure Type Body Site Date of Procedure Related Diag nosis Operation 04/13/11 12:00 AM Steroid injection into 2010 medial epicondyle tendon of humerus Tricuspid valve operation 05/13/10 12:00 AM Social History Social History Type Response Alcohol Use: Current, Type: Beer, F requency: 1-2 times per month Smoking Status Never smoker, Exposure to T obacco Smoke None, Cigarette Smoking Last 365 Days No, Reg Smoking Cessation Counseli ng No
--- OUTSIDE RECORDS SUMMARY | 2019-12-11 11:38 | XMS REPORT | Summary of Care ---
Author Author [facility] Organization [facility] Address Unknown Phone Unavailable Encounter HQ Machelle(FIN) [phone] Date(s): 11/10/18 - 11/10/18 [facility] [address] [address]- Discharge Disposition: Home or Self Care Attending Physician: Mila Houston MD Vital Signs Most recent to 1 oldest [Reference Range]: Height 170.18 cm (11/10/18 1:07 PM) Temperature Oral 97.9 DegF [96.4-99.1 DegF] (11/10/18 1:07 PM) Blood Pressure 157/74 mmHg [90-140/60-90 mmHg] *HI* (11/10/18 1:07 PM) Respiratory Rate 16 BRMIN [14-20 BRMIN] (11/10/18 1:07 PM) Peripheral Pulse 69 bpm Rate [60-100 bpm] (11/10/18 1:07 PM) Weight 74.091 kg (11/10/18 1:07 PM) Body Mass Index 25.58 m2 (11/10/18 1:07 PM) Problem List Condition Effective Dates Status [...] Daily, # 90 tab, 1 Refill(s), Pharmacy: [id number] Start Date: 11/10/18 Stop Date: 05/09/19 Status: Ordered carvedilol 12.5 mg oral tablet 12.5 mg = 1 tab, PO, BID, # 180 tab, 1 Refill(s), Pharmacy: [id number] Start Date: 11/10/18 Stop Date: 05/09/19 Status: Ordered citalopram 40 mg oral tablet See Instructions, TAKE ONE TABLET BY MOUTH ONCE DAILY FOR 90 DAYS, # 90 tab, 1 Refill(s), Pharmacy: [id number] Start Date: 11/10/18 Status: Ordered furosemide 20 mg oral tablet 20 mg = 1 tab, PO, Every Other Day, # 45 tab, 1 Refill(s), Pharmacy: [id number] Start Date: 11/10/18 Stop Date: 05/09/19 Status: Ordered simvastatin 5 mg oral tablet 1 tab, PO, Bedtime, # 90 tab, 1 Refill(s), [id number] Start Date: 11/10/18 Status: Ordered Results No data available for [...] tolerated well 2Result Comment: fluzone (>3 yrs.) [[id number]]. Migrated from OBS ; Data migrated from [employer] on 08/30/2015. 3Result Comment: done. Migrated from OBS ; Data migrated from [employer] on 08/30/2015. Procedures Procedure Date Related Diagnosis [...] Smoking C essation Counseling No entered on: 11/10/18 Assessment and Plan No data available for this section
--- OUTSIDE RECORDS SUMMARY | 2019-12-11 11:38 | XMS REPORT | Summary of Care ---
Author Author [facility] Organization [facility] Address Unknown Phone Unavailable Encounter HQ Annier_bebo(FIN) [phone] Date(s): 03/13/18 - 03/13/18 [facility] [address], [address] [place] [address]- [phone] Discharge Disposition: Home or Self Care Attending Physician: Mila Houston MD Vital Signs Most recent to 1 oldest [Reference Range]: Height 170.18 cm (03/13/18 8:40 AM) Temperature Oral 99.2 DegF [96.4-99.1 DegF] *HI* (03/13/18 8:40 AM) Blood Pressure 150/75 mmHg [90-140/60-90 mmHg] *HI* (03/13/18 8:40 AM) Respiratory Rate 14 BRMIN [14-20 BRMIN] (03/13/18 8:40 AM) Peripheral Pulse 76 bpm Rate [60-100 bpm] (03/13/18 8:40 AM) Weight 75.17 kg (03/13/18 8:40 AM) Body Mass Index 25.96 m2 (03/13/18 8:40 AM) Problem List Condition Effective Dates Status [...] PENICILLIN. Medications amLODIPine 5 mg oral tablet See Instructions, TAKE 1 TABLET BY MOUTH ONCE DAILY, # 90 tab, 1 Refill(s), [id number] Start Date: 05/26/18 Stop Date: 09/11/18 Status: Discontinued hydrochlorothiazide 25 mg oral tablet 25 mg = 1 tab, PO, Daily, # 90 tab, 1 Refill(s), [id number] Start Date: 01/21/18 Stop Date: 06/12/18 Status: Discontinued Results No data available for [...] tolerated well 2Result Comment: fluzone (>3 yrs.) [[id number]]. Migrated from OBS ; Data migrated from [employer] on 08/30/2015. 3Result Comment: done. Migrated from OBS ; Data migrated from [employer] on 08/30/2015. Procedures Procedure Date Related Diagnosis [...]
--- OUTSIDE RECORDS SUMMARY | 2019-12-11 11:39 | XMS REPORT | Summary of Care ---
Author Author [facility] Organization [facility] Address Unknown Phone Unavailable Encounter HQ Machelle(CEE) [id number] Date(s): 05/04/15 - 05/09/15 [facility] [address] [place] [address]- Discharge Disposition: Home Attending Physician: Balwinder Ramirez MD Admitting Physician: Balwinder Ramirez MD Vital Signs 1 2 3 Most recent to oldest [Reference Range]: 170.18 cm (05/04/15 9:09 PM) 170.18 cm (05/04/15 1:03 PM) Height 1 2 3 Most recent to oldest [Reference Range]: 98.5 DegF (05/09/15 11:00 AM) 97.8 DegF (05/09/15 8:00 AM) 97.7 DegF (05/09/15 3:55 AM) Temperature Oral [96.4-99.1 DegF] 1 2 3 Most recent to oldest [Reference Range]: 210/83 mmHg *HI* (05/09/15 8:00 AM) 180/84 mmHg *HI* (05/09/15 6:13 AM) Blood Pressure [90-140/60-90 mmHg] 146 mmHg *HI* (05/09/15 11:00 AM) Systolic Blood Pressure [90-140 mmHg] 1 2 3 Most recent to oldest [Reference Range]: 74 mmHg (05/09/15 11:00 AM) Diastolic Blood Pressure [60-90 mmHg] 1 2 3 Most recent to oldest [Reference Range]: 18 BRMIN (05/09/15 11:00 AM) 16 BRMIN (05/09/15 7:16 AM) 16 BRMIN (05/09/15 3:55 AM) Respiratory Rate [14-20 BRMIN] 1 2 3 Most recent to oldest [Reference Range]: 73 bpm (05/09/15 11:00 AM) 64 bpm (05/09/15 8:00 AM) 59 bpm *LOW* (05/09/15 6:13 AM) Peripheral Pulse Rate [60-100 bpm] 1 2 3 Most recent to oldest [Reference Range]: 82.002 kg (05/04/15 9:09 PM) 79.545 kg (05/04/15 1:03 PM) Weight 1 2 3 Most recent to oldest [Reference Range]: 28.31 m2 (05/04/15 9:09 PM) 27.47 m2 (05/04/15 1:03 PM) Body Mass Index Problem List Condition Effective Dates Status Health Status Informan t Abnormal EKG Active finding(Confirmed)1 Acid Active reflux(Confirmed) Anxiety(Confirmed) Active Anxiety disorder2 Active Back pain(Confirmed) Active Chronic diastolic 01/12/15 Active heart failure3 Heart disease4 09/21/13 Active Hyperkalemia5 Active Hyperlipidemia6, 7 09/21/13 Resolved Hypertension(Confirm Active ed) Hypertensive Active disorder8 Impotence9 Active Mopyelak24 Active Knee pain11 09/21/13 Active Shoulder joint Active pain12 Spinal qealtdmc88 Active 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 rash on body [facility] Originally documented as PENICILLIN. Medications acetaminophen 650 mg, 2 tab, Route: PO, Drug form: TAB, Q4H, Dosing Weight 82.002, kg, PRN Neeraj n 1-3/Temp > 100.4 F, Start date: 05/07/15 8:38:00, Duration: 30 day, Stop date: 06/06/15 8:37:00 Notes: Do not exceed 4 gm/day. (Same as: Tylenol) Start Date: 05/07/15 Stop Date: 05/09/15 Status: Discontinued acetaminophen-hydrocodone 325 mg-10 mg oral tablet 1 tab, Route: PO, Drug Form: TAB, Dosing Weight 82.002, kg, Q4H, PRN Pain Score 4-6, Start date: 05/07/15 8:38:00, Duration: 30 day, Stop date: 06/06/15 8:37:00 Notes: Do not exceed 4gm/day of acetaminophen. (Same as: [place] 325/10) Start Date: 05/07/15 Stop Date: 05/09/15 Status: Discontinued Al hydroxide/Mg hydroxide/simethicone 200 mg-200 mg-20 mg/5 mL oral suspension 30 ml, Route: PO, Drug Form: SUSP, Dosing Weight 82.002, kg, Q4H, PRN Indigestio n, Start date: 05/07/15 8:38:00, Duration: 30 day, Stop date: 06/06/15 8:37:00 Notes: (aluminum hydroxide-magnesium hyd-simethicone [id number]/5ml 30 ml ud S US) Start Date: 05/07/15 Stop Date: 05/09/15 Status: Discontinued ALPRAZOLam 0.25 mg, 1 tab, Route: PO, Drug form: TAB, Daily, Dosing Weight 79.545, kg, PRN Anxiety, Start date: 05/04/15 19:23:00, Duration: 30 day, Stop date: 06/03/15 19 :22:00 Notes: With food or milk(Same as: Xanax) Start Date: 05/04/15 Stop Date: 05/09/15 Status: Discontinued aspirin 81 mg, 1 tab, Route: PO, Drug form: ECTAB, Daily, Dosing Weight 79.545, kg, Star t date: 05/04/15 19:24:00, Duration: 30 day, Stop date: 06/03/15 9:00:00 Notes: Do not crush or chew.(Same As: Ecotrin) Start Date: 05/04/15 Stop Date: 05/09/15 Status: Discontinued citalopram 20 mg, 1 tab, Route: PO, Drug form: TAB, Daily, Dosing Weight 79.545, kg, Start date: 05/05/15 9:00:00, Duration: 30 day, Stop date: 06/03/15 9:00:00 Notes: (Same As: CeleXA) Start Date: 05/05/15 Stop Date: 05/04/15 Status: Canceled citalopram 20 mg, 1 tab, Route: PO, Drug form: TAB, Bedtime, Dosing Weight 79.545, kg, Star t date: 05/04/15 21:00:00, Duration: 30 day, Stop date: 06/02/15 21:00:00 Notes: (Same As: CeleXA) Start Date: 05/04/15 Stop Date: 05/09/15 Status: Discontinued clindamycin (SCIP) 600 mg, 50 mL, Route: IVPB, Drug form: INJ, Q8H, Dosing Weight 82.002, kg, Start date: 05/07/15 16:00:00, Duration: 1 doses or times, Stop date: 05/07/15 16:00: 00 Start Date: 05/07/15 Stop Date: 05/07/15 Status: Completed cloNIDine 0.1 mg, 1 tab, Route: PO, Drug form: TAB, Q4H, Dosing Weight 82.002, kg, PRN Carlie vated BP, Start date: 05/09/15 8:49:00, Duration: 30 day, Stop date: 06/08/15 8: 48:00 Notes: (Same As: Catapres) Start Date: 05/09/15 Stop Date: 05/09/15 Status: Discontinued diphenhydrAMINE 12.5 mg, 0.5 tab, Route: PO, Drug form: TAB, Q6H, Dosing Weight 82.002, kg, PRN Itching, Start date: 05/07/15 8:38:00, Duration: 30 day, Stop date: 06/06/15 8:3 7:00 Start Date: 05/07/15 Stop Date: 05/09/15 Status: Discontinued docusate sodium 100 mg oral capsule 100 mg, 1 cap, Route: PO, Drug form: CAP, BID, Dosing Weight 82.002, kg, Start d ate: 05/07/15 9:00:00, Duration: 30 day, Stop date: 06/05/15 17:00:00 Notes: (Same as: Colace) (Do Not Crush) Start Date: 05/07/15 Stop Date: 05/09/15 Status: Discontinued Dulcolax Laxative 5 mg, 1 tab, Route: PO, Drug form: ECTAB, Q24H, Dosing Weight 82.002, kg, PRN Co nstipation, Start date: 05/07/15 8:38:00, Duration: 30 day, Stop date: 06/06/15 8:37:00 Notes: (Same As: Dulcolax, Correctol) (Do Not Crush) "Do Not Crush" Start Date: 05/07/15 Stop Date: 05/09/15 Status: Discontinued enoxaparin 40 mg, 0.4 mL, Route: SUB-Q, Drug form: INJ, [id number], Dosing Weight 82.002, kg, Start date: 05/07/15 9:00:00, Duration: 30 day, Stop date: 06/05/15 9:00:00 Notes: (Same as: Lovenox) Start Date: 05/07/15 Stop Date: 05/09/15 Status: Discontinued fentaNYL 50 microgram, 1 mL, Route: IVP, Drug form: INJ, Q5Min, Dosing Weight 82.002, kg, PRN Pain Score 7-10, Start date: 05/07/15 9:06:00, Duration: 2 doses or times, Stop date: Limited # of times Notes: (Same as: Sublimaze) Preservative free. Start Date: 05/07/15 Stop Date: 05/07/15 Status: Discontinued fentaNYL 25 microgram, 0.5 mL, Route: IVP, Drug form: INJ, Q5Min, Dosing Weight 82.002, k g, PRN Pain Score 4-6, Start date: 05/07/15 9:06:00, Duration: 4 doses or times, Stop date: Limited # of times Notes: (Same as: Sublimaze) Preservative free. Start Date: 05/07/15 Stop Date: 05/07/15 Status: Discontinued Flexeril 10 mg, Route: PO, ONCE, Dosing Weight 79.545, kg, Priority: STAT, Start date: 13:26:00, Stop date: 05/04/15 13:26:00 Start Date: 05/04/15 Stop Date: 05/04/15 Status: Completed flumazenil 0.2 mg, 2 mL, Route: IVP, Drug form: INJ, PRN, Dosing Weight 82.002, kg, PRN Deng zodiazepine Reversal, Initial dose, Start date: 05/07/15 9:06:00, Duration: 30 d ay, Stop date: 06/06/15 8:05:00 Notes: (Same as: Romazicon) Start Date: 05/07/15 Stop Date: 05/07/15 Status: Discontinued furosemide 40 mg oral tablet 40 mg, 1 tab, Route: PO, Drug form: TAB, Daily, Dosing Weight 79.545, kg, Start date: 05/05/15 9:00:00, Duration: 30 day, Stop date: 06/03/15 9:00:00 Notes: (Same as: Lasix) May cause GI upset. Give with food or milk. Start Date: 05/05/15 Stop Date: 05/09/15 Status: Discontinued hydrALAZINE 10 mg, 0.5 mL, Route: IVP, Drug form: INJ, Q20Min, Dosing Weight 82.002, kg, PRN Elevated BP, Start date: 05/07/15 9:06:00, Duration: 2 doses or times, Stop manjit e: Limited # of times Notes: (Same as: Apresoline)Push over 5 minutes Start Date: 05/07/15 Stop Date: 05/07/15 Status: Discontinued hydromorphone 0.5 mg, 0.5 mL, Route: IVP, Drug form: INJ, Q5Min, Dosing Weight 82.002, kg, PRN Pain Score 7-10, Start date: 05/07/15 9:06:00, Duration: 4 doses or times, Stop date: Limited # of times Start Date: 05/07/15 Stop Date: 05/07/15 Status: Completed ibuprofen 600 mg, 1 tab, Route: PO, Drug form: TAB, Q6H, Dosing Weight 82.002, kg, PRN Neeraj n Score 1-5, Start date: 05/06/15 9:08:00, Duration: 30 day, Stop date: 06/05/15 9:07:00 Notes: (Same as: Motrin)"Do Not Crush" Take with food. Start Date: 05/06/15 Stop Date: 05/09/15 Status: Discontinued influenza virus vaccine, inactivated 0.5 mL, Route: IM, Drug Form: SUSP, Daily, Start date: 05/05/15 9:00:00, Duratio n: 1 doses or times, Stop date: 05/05/15 9:00:00 Notes: (Same as: Fluzone Quadrivalent)For 3 years of age and older (0.5 mL IM)Sh janel well before use Start Date: 05/05/15 Stop Date: 05/05/15 Status: Completed ketOROLAC 15 mg, 1 mL, Route: IVP, Drug form: INJ, Q6H, Dosing Weight 82.002, kg, Start da te: 05/07/15 12:00:00, Duration: 6 doses or times, Stop date: 05/08/15 18:00:00 Notes: (Same as:Toradol) IV bolus must be given >15 seconds. Give IM administration slowly and deeply into the muscle. Not for use > 4 days. Start Date: 05/07/15 Stop Date: 05/08/15 Status: Completed Lactated Ringers IV 1,000 mL 1,000 mL, Rate: 75 ml/hr, Infuse over: 13.3 hr, Route: IV, Dosing Weight 82.002 kg, Total Volume: 1,000, Start date: 05/07/15 8:38:00, Duration: 30 day, Stop da te: 06/06/15 8:37:00 Start Date: 05/07/15 Stop Date: 05/09/15 Status: Discontinued losartan 50 mg, 1 tab, Route: PO, Drug form: TAB, Bedtime, Dosing Weight 79.545, kg, Star t date: 05/04/15 21:00:00, Duration: 30 day, Stop date: 06/02/15 21:00:00 Notes: (Same as: Eusebia) Start Date: 05/04/15 Stop Date: 05/09/15 Status: Discontinued losartan 50 mg, 1 tab, Route: PO, Drug form: TAB, Daily, Dosing Weight 79.545, kg, Start date: 05/05/15 9:00:00, Duration: 30 day, Stop date: 06/03/15 9:00:00 Notes: (Same as: Eusebia) Start Date: 05/05/15 Stop Date: 05/04/15 Status: Canceled meperidine 12.5 mg, 0.25 mL, Route: IVP, Drug form: INJ, Q30Min, Dosing Weight 82.002, kg, PRN Other -See Comment, For shivering, Start date: 05/07/15 9:06:00, Duration: 2 doses or times, Stop date: Limited # of times Notes: (Same As: Demerol) Start Date: 05/07/15 Stop Date: 05/07/15 Status: Discontinued minoxidil 2.5 mg, 1 tab, Route: PO, Drug form: TAB, BID, Dosing Weight 79.545, kg, Start d ate: 05/05/15 9:00:00, Duration: 30 day, Stop date: 06/03/15 17:00:00 Notes: (Same as:Mookie) Start Date: 05/05/15 Stop Date: 05/04/15 Status: Canceled minoxidil 2.5 mg, 1 tab, Route: PO, Drug form: TAB, BID, Dosing Weight 79.545, kg, Start d ate: 05/04/15 21:00:00, Duration: 30 day, Stop date: 06/03/15 17:00:00 Notes: (Same as:Mookie) Start Date: 05/04/15 Stop Date: 05/09/15 Status: Discontinued morphine Sulfate 2 mg, 1 mL, Route: IVP, Drug form: INJ, Q3H, Dosing Weight 82.002, kg, PRN Pain Score 1-3, Start date: 05/07/15 8:38:00, Duration: 30 day, Stop date: 06/06/15 8 :37:00 Notes: (Same as:MORPhine Sulfate) Start Date: 05/07/15 Stop Date: 05/09/15 Status: Discontinued morphine Sulfate 2 mg, 1 mL, Route: IVP, Drug form: INJ, Q4H, Dosing Weight 79.545, kg, PRN Pain Score 7-10, Start date: 05/04/15 19:21:00, Duration: 30 day, Stop date: 06/03/15 19:20:00 Notes: (Same as:MORPhine Sulfate) Start Date: 05/04/15 Stop Date: 05/09/15 Status: Discontinued naloxone 0.04 mg, 0.1 mL, Route: IVP, Drug form: INJ, Q2MIN, Dosing Weight 82.002, kg, DE N Narcotic Reversal, Start date: 05/07/15 9:06:00, Duration: 8 doses or times, S top date: Limited # of times Notes: Same as Narcan Start Date: 05/07/15 Stop Date: 05/07/15 Status: Discontinued [place] 5/325 oral tablet 1 tab, PO, Q6H, PRN Pain Score 4-6, # 30 tab, 0 Refill(s) Start Date: 05/09/15 Stop Date: 06/09/15 Status: Ordered ondansetron 4 mg, 2 mL, Route: IVP, Drug form: INJ, ONCE, Dosing Weight 82.002, kg, PRN Naus ea & Vomiting, Start date: 05/07/15 9:06:00 Notes: (Same as: Patricia) MEDICATION WASTE Product Size: 4 mgProduct Was katie: ___ mg Start Date: 05/07/15 Stop Date: 05/07/15 Status: Discontinued oxyCODONE 10 mg, 2 tab, Route: PO, Drug form: TAB, Q4H, Dosing Weight 82.002, kg, PRN Pain Score 7-10, Start date: 05/07/15 9:06:00, Duration: 30 day, Stop date: 06/06/15 9:05:00 Notes: (Same as: Roxicodone) Start Date: 05/07/15 Stop Date: 05/07/15 Status: Discontinued oxyCODONE 5 mg, 1 tab, Route: PO, Drug form: TAB, Q4H, Dosing Weight 82.002, kg, PRN Pain Score 4-6, Start date: 05/07/15 9:06:00, Duration: 30 day, Stop date: 06/06/15 9 :05:00 Notes: (Same as: Roxicodone) Start Date: 05/07/15 Stop Date: 05/07/15 Status: Discontinued pantoprazole 40 mg, 1 tab, Route: PO, Drug form: ECTAB, Before Dinner, Dosing Weight 82.002, kg, Start date: 05/07/15 9:00:00, Duration: 30 day, Stop date: 06/05/15 16:30:00 Notes: Tablet should not be chewed or crushed.(Same as: Protonix) Start Date: 05/07/15 Stop Date: 05/09/15 Status: Discontinued pneumococcal 23-valent vaccine 0.5 mL, Route: IM, Drug Form: INJ, Daily, Start date: 05/05/15 9:00:00, Duration : 1 doses or times, Stop date: 05/05/15 9:00:00 Notes: (Same as: Pneumovax 23) Refrigerate Start Date: 05/05/15 Stop Date: 05/05/15 Status: Completed promethazine + Sodium Chloride 0.9% IV 50 mL 12.5 mg, 0.5 mL, Route: IVPB, Q4H, Dosing Weight 82.002, kg, PRN Nausea & Vomiting, Start date: 05/07/15 8:38:00, Duration: 30 day, Stop date: 06/06/15 8 :37:00 Notes: Do not give IV push. (Same as: Phenergan) Start Date: 05/07/15 Stop Date: 05/09/15 Status: Discontinued Saline Flush 0.9% 10 ml, Route: IVP, Drug Form: INJ, Dosing Weight 79.545, kg, PRN, PRN Line Flush , Start date: 05/04/15 18:47:00, Duration: 30 day, Stop date: 06/03/15 17:46:00 Notes: (Same as: BD Posiflush) Start Date: 05/04/15 Stop Date: 05/09/15 Status: Discontinued Sodium Chloride 0.9% (Bolus) IV 1,000 mL, 1000 ml/hr, Infuse Over: 1 hr, Route: IV, 1,000, Drug form: INJ, ONCE, Priority: STAT, Dosing Weight 79.545 kg, Start date: 05/04/15 15:57:00, Duratio n: 1 doses or times, Stop date: 05/04/15 15:57:00 Start Date: 05/04/15 Stop Date: 05/04/15 Status: Completed Tylenol 650 mg, 20.3 mL, Route: PO, Drug form: LIQ, Q4H, Dosing Weight 79.545, kg, PRN F or Temp > 100.4 F, Start date: 05/04/15 19:22:00, Duration: 30 day, Stop date: 06/03/15 19:21:00 Notes: Max acetaminophen = 4000mg/day (4 gm/day). (Same as: Tylenol) Start Date: 05/04/15 Stop Date: 05/09/15 Status: Discontinued Tylenol 975 mg, 3 tab, Route: PO, Drug form: TAB, ONCE, Dosing Weight 79.545, kg, Priori ty: STAT, Start date: 05/04/15 16:29:00, Stop date: 05/04/15 16:29:00 Notes: Do not exceed 4 gm/day. (Same as: Tylenol) Start Date: 05/04/15 Stop Date: 05/04/15 Status: Completed Tylenol with Codeine #3 oral tablet 1 tab, Route: PO, Drug Form: TAB, Dosing Weight 82.002, kg, Q4H, PRN Cough, Star t date: 05/06/15 10:21:00, Duration: 30 day, Stop date: 06/05/15 10:20:00 Notes: Do not exceed 4gm/day of acetaminophen. (Same as: Tylenol with Codeine # 3) Start Date: 05/06/15 Stop Date: 05/09/15 Status: Discontinued vancomycin 1 gm, Route: IVPB, Drug form: INJ, ONCE, Dosing Weight 79.545, kg, Priority: STA T, Start date: 05/04/15 13:26:00, Stop date: 05/04/15 13:26:00 Start Date: 05/04/15 Stop Date: 05/04/15 Status: Completed vancomycin 1.25 gm, 250 mL, Route: IV, Drug form: INJ, [id number], Dosing Weight 82.002, kg, S tart date: 05/05/15 18:00:00, Duration: 30 day, Stop date: 06/04/15 6:00:00 Notes: TIME CRITICAL MEDICATIONSame as: Vancocin-NS (premixed)Infusion rate< 1000 mg: infuse over 1 [id number] - 1500 mg: infuse over 1.5 [id number] - 2000 mg: infuse over 2 hours> 2001 mg: infuse over 2.5 hours Start Date: 05/05/15 Stop Date: 05/09/15 Status: Discontinued vancomycin 1 gm, Route: IVPB, Drug form: INJ, Q24H, Dosing Weight 79.545, kg, Priority: STA T, Start date: 05/04/15 16:28:00, Duration: 30 day, Stop date: 06/02/15 16:28:00 Start Date: 05/04/15 Stop Date: 05/04/15 Status: Discontinued vancomycin 1 gm, 200 mL, Route: IVPB, Drug form: INJ, Q12H, Dosing Weight 79.545, kg, Prior ity: Routine, Start date: 05/05/15 3:00:00, Duration: 30 day, Stop date: 5 15:00:00 Notes: TIME CRITICAL MEDICATION Start Date: 05/05/15 Stop Date: 05/05/15 Status: Discontinued Zanaflex 4 mg, 1 tab, Route: PO, Drug form: TAB, TID, Dosing Weight 82.002, kg, Start manjit e: 05/06/15 13:00:00, Duration: 30 day, Stop date: 06/05/15 9:00:00 Notes: (Same As: Zanaflex) Start Date: 05/06/15 Stop Date: 05/09/15 Status: Discontinued zolpidem 5 mg, 1 tab, Route: PO, Drug form: TAB, Bedtime, Dosing Weight 82.002, kg, PRN I nsomnia, Start date: 05/07/15 8:38:00, Duration: 30 day, Stop date: 06/06/15 8:3 7:00 Notes: (Same As: Ambien) Start Date: 05/07/15 Stop Date: 05/09/15 Status: Discontinued Results BLOOD BANK RESULTS 1 2 3 Most recent to oldest [Reference Range]: A POS *Unknown* (05/07/15 10:24 AM) ABO/Rh Negative (05/07/15 10:24 AM) Antibody Scrn ELECTROLYTES 1 2 3 Most recent to oldest [Reference Range]: 137 mEq/L (05/09/15 10:45 AM) 139 mEq/L (05/08/15 5:44 AM) 136 mEq/L (05/06/15 5:22 AM) Sodium Lvl [135-145 mEq/L] 4.4 mEq/L (05/09/15 10:45 AM) 4.1 mEq/L (05/08/15 5:44 AM) 3.7 mEq/L (05/06/15 5:22 AM) Potassium Lvl [3.5-5.1 mEq/L] 100 mEq/L (05/09/15 10:45 AM) 104 mEq/L (05/08/15 5:44 AM) 102 mEq/L (05/06/15 5:22 AM) Chloride Lvl [95-109 mEq/L] 31 mEq/L (05/09/15 10:45 AM) 29 mEq/L (05/08/15 5:44 AM) 28 mEq/L (05/06/15 5:22 AM) CO2 [24-32 mEq/L] 10.4 mEq/L (05/09/15 10:45 AM) 10.1 mEq/L (05/08/15 5:44 AM) 9.7 mEq/L *LOW* (05/06/15 5:22 AM) AGAP [10.0-20.0 mEq/L] CHEM PANEL 1 2 3 Most recent to oldest [Reference Range]: 1.1 mg/dL (05/09/15 10:45 AM) 1.0 mg/dL (05/08/15 5:44 AM) 1.1 mg/dL (05/07/15 10:24 AM) Creatinine Lvl [0.5-1.4 mg/dL] 81 mL/min/1.73m2 1 *NA* (05/09/15 10:45 AM) 91 mL/min/1.73m2 2 *NA* (05/08/15 5:44 AM) 81 mL/min/1.73m2 3 *NA* (05/07/15 10:24 AM) eGFR 16 mg/dL (05/09/15 10:45 AM) 18 mg/dL (05/08/15 5:44 AM) 15 mg/dL (05/06/15 5:22 AM) BUN [7-22 mg/dL] 18 (05/05/15 3:52 AM) B/C Ratio [6-25] 94 mg/dL (05/09/15 10:45 AM) 101 mg/dL *HI* (05/08/15 5:44 AM) 97 mg/dL (05/06/15 5:22 AM) Glucose Lvl [70-99 mg/dL] 6.4 g/dL (05/05/15 3:52 AM) Total Protein [6.4-8.4 g/dL] 3.0 g/dL *LOW* (05/05/15 3:52 AM) Albumin Lvl [3.5-5.0 g/dL] 3.4 g/dL (05/05/15 3:52 AM) Globulin [2.0-4.0 g/dL] 0.9 (05/05/15 3:52 AM) A/G Ratio [0.7-1.6] 9.0 mg/dL (05/09/15 10:45 AM) 8.4 mg/dL *LOW* (05/08/15 5:44 AM) 8.5 mg/dL (05/06/15 5:22 AM) Calcium Lvl [8.5-10.5 mg/dL] 17 unit/L (05/05/15 3:52 AM) ALT [0-65 unit/L] 9 unit/L (05/05/15 3:52 AM) AST [0-37 unit/L] 78 unit/L (05/05/15 3:52 AM) Alk Phos [39-136 unit/L] 0.8 mg/dL (05/05/15 3:52 AM) Bili Total [0.2-1.3 mg/dL] 1.6 mMol/L (05/04/15 3:01 PM) Lactic Acid Lvl [0.5-2.2 mMol/L] 1Result Comment: The eGFR is calculated using [...] be mul tiplied by the estimated BMI. 2Result Comment: The eGFR is calculated using the [...] be mul tiplied by the estimated BMI. 3Result Comment: The eGFR is calculated using the [...] be mul tiplied by the estimated BMI. LIPIDS 1 2 3 Most recent to oldest [Reference Range]: 3.19 *LOW* (05/06/15 5:22 AM) CHD Risk [4.00-7.30] 118 mg/dL (05/06/15 5:22 AM) Chol [<=199 mg/dL] 81 mg/dL (05/06/15 5:22 AM) Trig [<=149 mg/dL] 37 mg/dL *LOW* (05/06/15 5:22 AM) HDL [>=61 mg/dL] 65 mg/dL (05/06/15 5:22 AM) LDL (Calculated) [<=99 mg/dL] 16 *NA* (05/06/15 5:22 AM) VLDL SPECIAL CHEMISTRY 1 2 3 Most recent to oldest [Reference Range]: 6.2 % *HI* (05/06/15 5:22 AM) Hgb A1C [<=5.6 %] TOXICOLOGY 1 2 3 Most recent to oldest [Reference Range]: 0730 *NA* (05/07/15 10:24 AM) 1500 *NA* (05/05/15 4:33 PM) [facility] Tr TND 10.2 ug/ml *NA* (05/07/15 10:24 AM) 6.2 ug/ml *NA* (05/05/15 4:33 PM) [facility] 1 2 3 Most recent to oldest [Reference Range]: 8.7 K/CMM (05/09/15 10:45 AM) 6.0 K/CMM (05/08/15 5:44 AM) 10.2 K/CMM (05/06/15 5:22 AM) WBC [3.7-10.4 K/CMM] 4.82 M/CMM (05/09/15 10:45 AM) 4.59 M/CMM *LOW* (05/08/15 5:44 AM) 4.76 M/CMM (05/06/15 5:22 AM) RBC [4.70-6.10 M/CMM] 13.5 g/dL *LOW* (05/09/15 10:45 AM) 12.9 g/dL *LOW* (05/08/15 5:44 AM) 13.3 g/dL *LOW* (05/06/15 5:22 AM) Hgb [14.0-18.0 g/dL] 41.1 % *LOW* (05/09/15 10:45 AM) 39.3 % *LOW* (05/08/15 5:44 AM) 40.7 % *LOW* (05/06/15 5:22 AM) Hct [42.0-54.0 %] 85.2 fL (05/09/15 10:45 AM) 85.7 fL (05/08/15 5:44 AM) 85.5 fL (05/06/15 5:22 AM) MCV [80.0-94.0 fL] 27.9 pg (05/09/15 10:45 AM) 28.2 pg (05/08/15 5:44 AM) 28.0 pg (05/06/15 5:22 AM) MCH [27.0-31.0 pg] 32.7 g/dL (05/09/15 10:45 AM) 32.9 g/dL (05/08/15 5:44 AM) 32.8 g/dL (05/06/15 5:22 AM) MCHC [32.0-36.0 g/dL] 13.4 % (05/09/15 10:45 AM) 13.6 % (05/08/15 5:44 AM) 13.6 % (05/06/15:22 AM) RDW [11.5-14.5 %] 277 K/CMM (05/09/15 10:45 AM) 211 K/CMM (05/08/15 5:44 AM) 224 K/CMM (05/07/15 10:24 AM) Platelet [133-450 K/CMM] 8.8 fL (05/09/15 10:45 AM) 8.7 fL (05/08/15 5:44 AM) 9.1 fL (05/06/15 5:22 AM) MPV [7.4-10.4 fL] 73.0 % (05/09/15 10:45 AM) 55.8 % (05/08/15 5:44 AM) 72.3 % (05/06/15 5:22 AM) Segs [45.0-75.0 %] 16.0 % *LOW* (05/09/15 10:45 AM) 26.5 % (05/08/15 5:44 AM) 16.2 % *LOW* (05/06/15 5:22 AM) Lymphocytes [20.0-40.0 %] 7.7 % (05/09/15 10:45 AM) 11.5 % (05/08/15 5:44 AM) 9.6 % (05/06/15 5:22 AM) Monocytes [2.0-12.0 %] 2.8 % (05/09/15 10:45 AM) 5.5 % *HI* (05/08/15 5:44 AM) 1.4 % (05/06/15 5:22 AM) Eosinophils [0.0-4.0 %] 0.5 % (05/09/15 10:45 AM) 0.7 % (05/08/15 5:44 AM) 0.5 % (05/06/15 5:22 AM) Basophils [0.0-1.0 %] 6.4 K/CMM (05/09/15 10:45 AM) 3.3 K/CMM (05/08/15 5:44 AM) 7.4 K/CMM (05/06/15 5:22 AM) Segs-Bands # [1.5-8.1 K/CMM] 1.4 K/CMM (05/09/15 10:45 AM) 1.6 K/CMM (05/08/15 5:44 AM) 1.7 K/CMM (05/06/15 5:22 AM) Lymphocytes # [1.0-5.5 K/CMM] 0.7 K/CMM (05/09/15 10:45 AM) 0.7 K/CMM (05/08/15 5:44 AM) 1.0 K/CMM *HI* (05/06/15 5:22 AM) Monocytes # [0.0-0.8 K/CMM] 0.2 K/CMM (05/09/15 10:45 AM) 0.3 K/CMM (05/08/15 5:44 AM) 0.1 K/CMM (05/06/15 5:22 AM) Eosinophils # [0.0-0.5 K/CMM] 0.1 K/CMM (05/05/15 3:52 AM) 0.1 K/CMM (05/04/15 1:34 PM) Basophils # [0.0-0.2 K/CMM] 25 mm/hr *HI* (05/06/15 5:22 AM) Sed Rate [0-15 mm/hr] 16.4 seconds *HI* (05/04/15 3:01 PM) PT [12.0-14.7 seconds] 1.29 *HI* (05/04/15 3:01 PM) INR [0.85-1.17] 34.1 seconds (05/07/15 10:24 AM) 30.6 seconds (05/04/15 3:01 PM) PTT [22.9-35.8 seconds] Immunizations Vaccine Date Refusal Reason diphtheria/pertussis, acel/tetanus adult 05/04/15 influenza virus vaccine, inactivated 05/05/15 pneumococcal 23-valent vaccine 05/05/15 Procedures Procedure Date Related Diagnosis Body Site Operation 04/13/11 Tricuspid valve operation 05/13/10 Injection into joint Open heart surgery Social History Social History Type Response Alcohol Current, Type Beer. Freque ncy: 1-2 times per month. Smoking Status Never smoker; Exposure to T obacco Smoke None; Cigarette Smoking Last 365 Days No; Reg Smoking Cessation Counseli ng No Assessment and Plan Extracted from: Title: Clinical Document Author: Mayela Haile MD Date: 1 Ifectious Disease Progress Note [facility] Dr. Mayela Haile SUBJECTIVE Events reviewed. Met with the family/ OBJECTIVE Gen: alert, no acute distress, follow command HEENT: not pale, not icteric, normal cephalic, Neck: Supple, no jvd, CV: S1, S2, no murmurs Lung: clear bilateral course BS Abd: soft, bowel sound normal, no tenderness Ext: no edema Skin: no rash Neuro: no seizure, no local finding Vitals and Temp: VitalsTmp(F)[id number] 05/08 07:[id number]--- 05/08 03:[id number]--- 05/07 23:2398.567001/[id number]--- 05/07 20:03 03247 21% 05/07 19:[id number]/[id number]--- 24 Hr Tmax: 98.8F (37.11c) at 05/07 11:0 0Vital Signs are the last 5 in the past 48 hours. Input/Output RecordInOutBal 10/1124hr Tot 250 0 250 10/1024hr Tot 1954 0 1954 Physical Exam Labs (Last four charted values) WBC 6.0(MAY 08)10.2(MAY 06)H 16.4(MAY 05)H 18.5(MAY 04) Hgb L 12.9(MAY 08)L 13.3(MAY 06)L 12.8(MAY 05)14.3(MAY 04) Hct L 39.3(MAY 08)L 40.7(MAY 06)L 39.7(MAY 05)44.1(MAY 04) Plt 211(MAY 08)224(MAY 07)197(MAY 06)165(MAY 05) Na 139(MAY 08)136(MAY 06)137(MAY 05)136(MAY 04) K 4.1(MAY 08)3.7(MAY 06)3.8(MAY 05)3.9(MAY 04) CO2 29(MAY 08)28(MAY 06)26(MAY 05)25(MAY 04) Cl 104(MAY 08)102(MAY 06)106(APR 08)105(MAY 04) Cr 1.0(MAY 08)1.1(MAY 07)1.1(MAY 06)1.0(MAY 05) BUN 18(MAY 08)15(MAY 06)18(MAY 05)16(MAY 04) Glucose Random H 101(MAY 08)97(APR 09)H 119(APR 08)H 176(MAY 04) Ca L 8.4(MAY 08)8.5(MAY 06)L 8.1(MAY 05)8.8(MAY 04) PT H 16.4(MAY 04) INR H 1.29(MAY 04) PTT 34.1(MAY 07)30.6(MAY 04) Medications Scheduled Meds (11):aspirin, citalopram, docusate [...]
--- NOTE | 2019-12-11 12:28 | NUR ---
UPDATED PT. FULL MONITORS AND LABS PENDING. AWARE OF TRANSFER. SKIN W/D. NO PAIN NO SOB NO DIZZINESS. ATE BREAKFAST AND HAD COFFEE. NAD. SB NO ECTOPY.
[2019-12-11 12:30] LABS: BASOPHILS # (AUTO) 0.1 (0.0-0.1); BASOPHILS % 0.5 % (0.0-1.0); EOSINOPHILS # (AUTO) 0.3 (0.0-0.4); EOSINOPHILS % 3.4 % (0.0-6.0); HEMATOCRIT 39.9 % (38.2-49.6); HEMOGLOBIN 12.9 g/dL (14.0-18.0); LYMPHOCYTES # (AUTO) 2.3 (1.0-3.2); LYMPHOCYTES % 23.9 % (18.0-39.1); MEAN CORPUSCULAR HEMOGLOBIN 28.6 pg (28-32); MEAN CORPUSCULAR HGB CONC 32.3 g/dL (31-35); MEAN CORPUSCULAR VOLUME 88.5 fL (81-99); MONOCYTES # (AUTO) 0.8 (0.2-0.8); MONOCYTES % 8.3 % (4.4-11.3); NEUTROPHILS # (AUTO) 6.1 (2.1-6.9); NEUTROPHILS % 63.6 % (38.7-80.0); PLATELET COUNT 204 x10e3/uL (140-360); RED BLOOD COUNT 4.51 x10e6/uL (4.3-5.7); RED CELL DISTRIBUTION WIDTH 14.1 % (11.7-14.4)
[2019-12-11 12:52] LABS: ALBUMIN/GLOBULIN RATIO 1.3 (0.8-2.0); ANION GAP 14.1 mmol/L (8-16); CALCIUM 8.7 mg/dL (8.4-10.2); CREATININE, SERUM 1.3 mg/dL (0.72-1.25)
--- NOTE | 2019-12-11 13:10 | Diagnostic Imaging Report ---
EXAMINATION: CHEST SINGLE (PORTABLE) INDICATION: Shortness of breath COMPARISON: None FINDINGS: LINES/TUBES:EKG leads overlie the chest. LUNGS:The lungs are well-inflated. No focal consolidation or pulmonary edema. PLEURA:No pleural effusion or pneumothorax. MEDIASTINUM:The cardiomediastinal silhouette appears normal in size and shape. BONES/SOFT TISSUES:No acute osseous injury. Sternotomy wires in place. ABDOMEN:No free air under the diaphragm. IMPRESSION: No focal pneumonia or pulmonary edema. Signed by: Shira Ashley MD on 12/11/2019 1:07 PM
[2019-12-11 13:17] LABS: POTASSIUM 6.1 mmol/L (3.5-5.1)
--- NOTE | 2019-12-11 13:24 | NUR ---
critical potassium was NOT called to Tessa Cosme. Dr Golden states she took critical value and repeated her name to labor and delivery registered nurse twice. lab called to re-draw potassium on pt.
[2019-12-11] MEDS ORDERED: SOD POLYSTYRENE SULFONATE SUSP 15 GM/60 ML BTL PO ONE (13:30)
[2019-12-11] MEDS ORDERED: CALCIUM GLUCONATE 10% INJ 4.65 MEQ in SODIUM CHLORIDE 0.9% 50ML 50 ML IV ONE (13:45)
--- NOTE | 2019-12-11 13:45 | Emergency Department Note ---
History of Present Illnes History of Present Illness Chief Complaint: General Medicine Complaints History of Present Illness This is a 49 year old male arrived to the ED with complaints of dizziness and chest pain. Pt with significant cardiac history, cardiologists at [facility]. Chief Complaint Comment HERE FOR DIZZINESS AND SWEATING EARLY THIS MORNING, HISTORY OF CARDIAC DEFECTS AND HAS HAD TRICUSPID VALVE REPLACED RECENTLY, HAD SIMILAR ISSUE A FEW YEARS BACK AND WAS PLACED ON HOLTER MONITOR. Historian: Patient Arrival Mode: Car Lens Grinder Rough Required: No Onset (how long ago): hour(s) Radiation: non-radiation Duration (how long): hour(s) Timing of current episode: intermittent Progression: waxing and waning Relieving factors: rest Exacerbating factors: movement Associated symptoms: diaphoresis, shortness of breath (palpitations) Risk factors: coarctation of aorta, tricuspid valve repair Past Medical/Family History Physician Review I have reviewed the patient's past medical and family history. Any updates have been documented here. Past Medical History Recent Fever: No Clinical Suspicion of Infectio: No New/Unexplained Change in Ment: No Past Medical History: Hypertension, Diabetes Past Surgical History: CABG Social History Smoking Cessation: Unknown if ever smoked Counseling Performed: No Alcohol Use: None Any Illegal Drug Use: No TB Exposure/Symptoms: No Physically hurt or threatened: No Family History Family history of heart diseas: Yes Other Is patient up to date on immun: No Last Flu: unk Last Pneumovax: unk Review of Systems Review of Systems Constitutional: no symptoms EENTM: no symptoms Cardiovascular: palpitations Respiratory: no symptoms Gastrointestinal: no symptoms Genitourinary: no symptoms Musculoskeletal: no symptoms Neurological: no symptoms Psychological: no symptoms Endocrine: no symptoms Hematological/Lymphatic: no symptoms Review of other systems All other systems reviewed and negative. Physical Exam Related Data Allergies: Coded Allergies: Penicillins (Verified Allergy, Severe, 12/11/19) Triage Vital Signs Vital Signs Date Time Temp Pulse Resp B/P (MAP) Pulse Ox O2 Delivery O2 Flow Rate FiO2 12/11/19 11:55 96.7 46 16 135/61 100 Vital signs reviewed: Yes Physical Exam CONSTITUTIONAL Constitutional: well-developed, well-nourished HENT HENT: normocephalic, atraumatic, oropharynx clear/moist, nose normal HENT L/R: left ext ear normal, right ext ear normal EYES Eyes: PERRL, conjunctivae normal NECK Neck: ROM normal PULMONARY Pulmonary: effort normal, breath sounds normal CARDIOVASCULAR Cardiovascular: regular rhythm, heart sounds normal, capillary refill normal, bradycardia GASTROINTESTINAL Abdominal: soft, nontender, bowel sounds normal GENITOURINARY Genitourinary: exam deferred SKIN Skin: warm, dry MUSCULOSKELETAL Musculoskeletal: ROM normal NEUROLOGICAL Neurological: alert, oriented x 3, no gross motor or sensory deficits PSYCHOLOGICAL Psychological: mood/affect normal, judgement normal Results Laboratory Result Diagram: 12/11/19 1158 12/11/19 1158 Laboratory Laboratory Tests Test 12/11/19 11:58 White Blood Count 9.59 x10e3/uL (4.8-10.8) Red Blood Count 4.51 x10e6/uL (4.3-5.7) Hemoglobin 12.9 g/dL (14.0-18.0) Hematocrit 39.9 % (38.2-49.6) Mean Corpuscular Volume 88.5 fL (81-99) Mean Corpuscular Hemoglobin 28.6 pg (28-32) Mean Corpuscular Hemoglobin Concent 32.3 g/dL (31-35) Red Cell Distribution Width 14.1 % (11.7-14.4) Platelet Count 204 x10e3/uL (140-360) Neutrophils (%) (Auto) 63.6 % (38.7-80.0) Lymphocytes (%) (Auto) 23.9 % (18.0-39.1) Monocytes (%) (Auto) 8.3 % (4.4-11.3) Eosinophils (%) (Auto) 3.4 % (0.0-6.0) Basophils (%) (Auto) 0.5 % (0.0-1.0) Neutrophils # (Auto) 6.1 (2.1-6.9) Lymphocytes # (Auto) 2.3 (1.0-3.2) Monocytes # (Auto) 0.8 (0.2-0.8) Eosinophils # (Auto) 0.3 (0.0-0.4) Basophils # (Auto) 0.1 (0.0-0.1) Absolute Immature Granulocyte (auto 0.03 x10e3/uL (0-0.1) Sodium Level 135 mmol/L (136-145) Potassium Level 6.1 mmol/L (3.5-5.1) Chloride Level 103 mmol/L (98-107) Carbon Dioxide Level 24 mmol/L (22-29) Anion Gap 14.1 mmol/L (8-16) Blood Urea Nitrogen 24 mg/dL (7-26) Creatinine 1.30 mg/dL (0.72-1.25) Estimat Glomerular Filtration Rate 59 ML/MIN (60-) BUN/Creatinine Ratio 18 (6-25) Glucose Level 98 mg/dL (74-118) Calcium Level 8.7 mg/dL (8.4-10.2) Total Bilirubin 0.6 mg/dL (0.2-1.2) Aspartate Amino Transf (AST/SGOT) 35 IU/L (5-34) Alanine Aminotransferase (ALT/SGPT) 27 IU/L (0-55) Alkaline Phosphatase 46 IU/L (40-150) Creatine Kinase 148 IU/L (30-200) Creatine Kinase MB 2.00 ng/mL (0-5.0) Troponin I 0.001 ng/mL (0-0.300) B-Type Natriuretic Peptide 151.7 pg/mL (0-100) Total Protein 7.1 g/dL (6.5-8.1) Albumin 4.0 g/dL (3.5-5.0) Globulin 3.1 g/dL (2.3-3.5) Albumin/Globulin Ratio 1.3 (0.8-2.0) Procedures 12 Lead ECG Interpretation Lens Grinder Rough: Interpreted by ED physician Date: December 11, 2019 Time: 11:52 Prior [employer] DIRECTOR tracings: reviewed Rhythm: sinus bradycardia Rate: bradycardia QRS axis: left Clinical Impression: normal ECG Critical Care Time Subsequent provider I assumed direction of critical care for this patient from another provider of my specialty. Assessment & Plan Assessment & Plan Problems: (1) Unstable angina Assessment & Plan Pt with high heart score, extensive cardiac history, all of cardiac care done at [facility], pt requested transfer for continuity of care Depart Disposition: TRANS TO OTHER [facility] Last Vital Signs Date Time Temp Pulse Resp B/P (MAP) Pulse Ox O2 Delivery O2 Flow Rate FiO2 12/11/19 13:17 50 14 136/60 100 12/11/19 11:55 96.7 Medications in the ED Sodium Polystyrene Sulfonate 30 gm ONCE ONCE PO ; Start 12/11/19 at 13:30; Stop 12/11/19 at 13:31 Calcium Gluconate 4.65 meq/Sodium Chloride 60 ml @ 60 mls/hr ONCE ONCE IV ; Start 12/11/19 at 13:45; Stop 12/11/19 at 14:44 PAVAN LAURENT DO December 11, 2019 14:01
--- NOTE | 2019-12-11 14:26 | NUR ---
st [facility] called and gave cell number to dr smyth(who is the accepting physican for transfer and hasnt called to do the doc to doc ) and asked for us to call her which we did and did the doc to doc
--- NOTE | 2019-12-11 14:32 | NUR ---
doc to doc completed
[2019-12-11 14:43] LABS: ANION GAP 14.6 mmol/L (8-16); BLOOD UREA NITROGEN 23 mg/dL (7-26); BUN/CREATININE RATIO 18 (6-25); CALCIUM 9.3 mg/dL (8.4-10.2); CARBON DIOXIDE 26 mmol/L (22-29); CHLORIDE 103 mmol/L (98-107); CREATININE, SERUM 1.25 mg/dL (0.72-1.25); EST GLOMERULAR FILTRATION RATE > 60 ML/MIN (60-); GLUCOSE 100 mg/dL (74-118); SODIUM 138 mmol/L (136-145)
[2019-12-11 14:44] LABS: POTASSIUM 5.6 mmol/L (3.5-5.1)
--- NOTE | 2019-12-11 15:40 | NUR ---
report to ems.
== END 2019-12-11 15:30 | disposition short-term general hospital (02) ==
LOC: ER 11:34
DX: R00.2 Palpitations (principal); R61 Generalized hyperhidrosis; I20.0 Unstable angina; I10 Essential (primary) hypertension; E11.9 Type 2 diabetes mellitus without complications; Z95.1 Presence of aortocoronary bypass graft
CPT/HCPCS: 36415; 71045; 80048; 80053; 82550; 82553; 83880; 84484; 85025; 93005; 99284; J0610